=== PATIENT | female | born 1985 | race Caucasian/White ===

== ENCOUNTER 2017-06-30 13:24 | Emergency (ER) | payer BC ==
--- NOTE | 2017-06-30 14:14 | ER Document Report ---
ED General - General Chief Complaint: Chest Pain Stated Complaint: HEART RATE PROBLEM Time Seen by Provider: 06/30/17 14:01 Mode of Arrival: Ambulatory Information source: Patient Notes: 31-year-old female presents with complaints of 2 week duration of nausea with decreased oral intake. Patient notes that there is no pain that she just feels very nauseous. She denies any fevers or chills admits to anxiety. She notes her heart rate worsens when she stands up TRAVEL OUTSIDE OF THE [place] IN LAST 30 DAYS: Yes COUNTRY TRAVELED TO/FROM: [facility] Onset: Last week Onset/Duration: Intermittent Quality of pain: No pain Severity: Mild Pain Level: Denies Associated symptoms: Other Exacerbated by: Standing Relieved by: Denies Similar symptoms previously: No Recently seen / treated by doctor: No - Related Data Allergies/Adverse Reactions: fluconazole [From Diflucan] Allergy (Unknown, Verified 06/30/17 13:25) Past Medical History - Social History Smoking Status: Never Smoker Cigarette use (# per day): No Chew tobacco use (# tins/day): No Smoking Education Provided: No Frequency of alcohol use: None Drug Abuse: None Family History: Reviewed & Not Pertinent, CAD, DM Patient has suicidal ideation: No Patient has homicidal ideation: No - Past Medical History Cardiac Medical History: Denies: Hx Heart Attack, Hx Hypertension Pulmonary Medical History: Denies: Hx Asthma Neurological Medical History: Reports: Hx Cerebrovascular Accident - At , weakness on left side, cerebral palsy. Denies: Hx Seizures Renal/ Medical History: Denies: Hx Peritoneal Dialysis GI Medical History: Denies: Hx Hepatitis, Hx Hiatal Hernia, Hx Ulcer Musculoskeltal Medical History: Reports Hx Muscle Weakness - Left sided weakness Infectious Medical History: Denies: Hx Hepatitis Past Surgical History: Reports: Hx Cholecystectomy, Hx Orthopedic Surgery - x6. Denies: Hx Mastectomy, Hx Open Heart Surgery, Hx Pacemaker - Immunizations Immunizations up to date: Yes Hx Diphtheria, Pertussis, Tetanus Vaccination: Yes Review of Systems - Review of Systems Notes: REVIEW OF SYSTEMS: CONSTITUTIONAL : Denies fever, chills, or sweats. Denies recent illness. EENT: Denies eye, ear, throat, or mouth pain or symptoms. Denies nasal or sinus congestion or discharge. Denies throat, tongue, or mouth swelling or difficulty swallowing. CARDIOVASCULAR: Admits to heart racing RESPIRATORY: Denies cough, cold, or chest congestion. Denies shortness of breath, difficulty breathing, or wheezing. GASTROINTESTINAL: Denies abdominal pain or distention. Denies nausea, vomiting , or diarrhea. Denies blood in vomitus, stools, or per rectum. Denies black, tarry stools. Denies constipation. GENITOURINARY: Denies difficulty urinating, painful urination, burning, frequency, blood in urine, or discharge. FEMALE GENITOURINARY: Denies vaginal bleeding, heavy or abnormal periods, irregular periods. Denies vaginal discharge or odor. MUSCULOSKELETAL: Denies back or neck pain or stiffness. Denies joint pain or swelling. SKIN: Denies rash, lesions or sores. HEMATOLOGIC : Denies easy bruising or bleeding. LYMPHATIC: Denies swollen, enlarged glands. NEUROLOGICAL: Denies confusion or altered mental status. Denies passing out or loss of consciousness. Denies dizziness or lightheadedness. Denies headache. Denies weakness or paralysis or loss of use of either side. Denies problems with gait or speech. Denies sensory loss, numbness, or tingling. Denies seizures. PSYCHIATRIC: Admits to anxiety ALL OTHER SYSTEMS REVIEWED AND NEGATIVE. PHYSICAL EXAMINATION: GENERAL: Well-appearing, well-nourished and in no acute distress. HEAD: Atraumatic, normocephalic. EYES: Pupils equal round and reactive to light, extraocular movements intact, conjunctiva are normal. ENT: Nares patent, oropharynx clear without exudates. Moist mucous membranes. NECK: Normal range of motion, supple without lymphadenopathy LUNGS: Breath sounds clear to auscultation bilaterally and equal. No wheezes rales or rhonchi. HEART: Regular rate and rhythm without murmurs ABDOMEN: Soft, nontender, nondistended abdomen. No guarding, no rebound. No masses appreciated. Female : deferred Musculoskeletal: Normal range of motion, no pitting or edema. No cyanosis. NEUROLOGICAL: Cranial nerves grossly intact. Normal speech, normal gait. Normal sensory, motor exams PSYCH: Normal mood, normal affect. SKIN: Warm, Dry, normal turgor, no rashes or lesions noted. Dictation was performed using [employer] voice recognition software Physical Exam - Vital signs Vitals: Temp Pulse Resp BP Pulse Ox 98.6 F 92 18 142/75 H 94 06/30/17 13:29 06/30/17 13:29 06/30/17 13:29 06/30/17 13:29 06/30/17 13:29 Course - Re-evaluation Re-evalutation: 06/30/17 14:14 Patient symptoms appear to be secondary to dehydration anxiety given decreased oral intake patient is quite anxious stating that she believes she is and has taken 2 test today 06/30/17 19:16 Patient's lab work noted no significant abnormality, I believe this is all anxiety dehydration related, patient overall looks well is in no distress and will be discharged home After performing a Medical Screening Examination, I estimate there is LOW risk for RUPTURED ESOPHAGUS, PNEUMOTHORAX, PULMONARY EMBOLISM, ACUTE CORONARY SYNDROME, OR THORACIC AORTIC DISSECTION, thus I consider the discharge disposition reasonable. I have reevaluated this patient multiple times and no significant life threatening changes are noted. The patient and I have discussed the diagnosis and risks, and we agree with discharging home with close follow-up. We also discussed returning to the Emergency Department immediately if new or worsening symptoms occur. We have discussed the symptoms which are most concerning (e.g., bloody sputum, worsening pain or shortness of breath) that necessitate immediate return. - Vital Signs Vital signs: Temp Pulse Resp BP Pulse Ox 97.9 F 77 18 133/88 H 99 06/30/17 16:53 06/30/17 16:53 06/30/17 16:53 06/30/17 16:53 06/30/17 16:53 - Laboratory Result Diagrams: 06/30/17 14:12 06/30/17 14:12 Laboratory results interpreted by me: 06/30/17 14:12 Glucose 116 H Discharge - Discharge Clinical Impression: Dehydration, Tachycardia Condition: Stable Disposition: HOME, SELF-CARE Instructions: Sinus Tachycardia ([facility]) Additional Instructions: Follow up with your physician tomorrow for further care or return to the ED IMMEDIATELY if symptoms worsen or new concerns occur. If you cannot afford to follow up with your primary care physician a list of low cost clinics have been provided at the end of your discharge papers as well. Referrals: LORIN MOTT MD [ACTIVE STAFF] - Follow up as needed
[2017-06-30 14:33] LABS: ABSOLUTE EOSINOPHILS # (AUTO) 0.2 10^3/uL (0.0-0.6); ABSOLUTE LYMPHOCYTES (AUTO) 1.5 10^3/uL (0.5-4.7); ABSOLUTE MONOCYTES (AUTO) 0.5 10^3/uL (0.1-1.4); ABSOLUTE NEUT (AUTO) 5.2 10^3/uL (1.7-8.2); BASOPHILS % (AUTO) 0.5 % (0-2); EOSINOPHILS % (AUTO) 2.1 % (0-6); HEMATOCRIT 39.2 % (36.0-47.0); HEMOGLOBIN 13.4 g/dL (12.0-15.5); LYMPHOCYTES % (AUTO) 20.3 % (13-45); MEAN CORPUSCULAR HEMOGLOBIN 29.6 pg (27.0-33.4); MEAN CORPUSCULAR HGB CONC 34.1 g/dL (32.0-36.0); MEAN CORPUSCULAR VOLUME 87 fl (80-97); MONOCYTES % (AUTO) 6.9 % (3-13); PLATELET COUNT 273 10^3/uL (150-450); RED BLOOD COUNT 4.52 10^6/uL (3.72-5.28); RED CELL DISTRIBUTION WIDTH 12.7 % (11.5-14.0); SEGMENTED NEUTROPHILS % (AUTO) 70.2 % (42-78); TOTAL CELLS COUNTED % (AUTO) 100 %; WHITE BLOOD COUNT 7.4 10^3/uL (4.0-10.5)
[2017-06-30 14:58] LABS: ALANINE AMINOTRANSFERASE 26 U/L (9-52); ALBUMIN 4.8 g/dL (3.5-5.0); ALKALINE PHOSPHATASE 54 U/L (38-126); ANION GAP 12 (5-19); ASPARTATE AMINO TRANSFERASE 22 U/L (14-36); BILIRUBIN,DIRECT 0.3 mg/dL (0.0-0.4); BILIRUBIN,TOTAL 0.3 mg/dL (0.2-1.3); BLOOD UREA NITROGEN 7 mg/dL (7-20); CALCIUM 9.6 mg/dL (8.4-10.2); CARBON DIOXIDE 29 mmol/L (22-30); CHLORIDE 101 mmol/L (98-107); GLUCOSE 116 mg/dL (75-110); POTASSIUM 3.7 mmol/L (3.6-5.0); SODIUM 141.5 mmol/L (137-145); TOTAL PROTEIN 7.8 g/dL (6.3-8.2)
[2017-06-30 16:54] VITALS: BP 133/88
--- NOTE | 2017-07-01 11:59 | EKG REPORT ---
SEVERITY:- NORMAL ECG - SINUS RHYTHM : Confirmed by: Nirali Clinton MD 01-Jul-2017 11:58:19
== END 2017-06-30 16:56 | disposition home or self-care (01) ==
LOC: ER 13:24
DX: E86.0 Dehydration (principal); F41.9 Anxiety disorder, unspecified; R00.0 Tachycardia, unspecified; R11.0 Nausea; Z88.3 Allergy status to other anti-infective agents
CPT/HCPCS: 36415; 80053; 84443; 84703; 85025; 85379; 93005; 93010; 99285

== ENCOUNTER 2017-09-28 05:14 | Day surgery (SDC) | payer BC ==
[2017-09-26 12:12] LABS: HEMATOCRIT 41.1 % (36.0-47.0); HEMOGLOBIN 13.8 g/dL (12.0-15.5); MEAN CORPUSCULAR HEMOGLOBIN 29.3 pg (27.0-33.4); MEAN CORPUSCULAR HGB CONC 33.5 g/dL (32.0-36.0); MEAN CORPUSCULAR VOLUME 87 fl (80-97); PLATELET COUNT 265 10^3/uL (150-450); RED CELL DISTRIBUTION WIDTH 13.3 % (11.5-14.0); WHITE BLOOD COUNT 8.9 10^3/uL (4.0-10.5)
[2017-09-26 12:21] LABS: APPEARANCE,URINE SLIGHTLY-CLOUDY; BILIRUBIN,URINE NEGATIVE (NEGATIVE); COLOR,URINE YELLOW; GLUCOSE, URINE NEGATIVE (NEGATIVE); KETONES,URINE NEGATIVE (NEGATIVE); LEUKOCYTE ESTERASE,URINE MODERATE (NEGATIVE); NITRITE,URINE NEGATIVE (NEGATIVE); PROTEIN,URINE NEGATIVE (NEGATIVE); URINE SPECIFIC GRAVITY 1.009; UROBILINOGEN,URINE NEGATIVE mg/dL (<2.0)
[2017-09-26 12:35] LABS: ANION GAP 15 (5-19); BLOOD UREA NITROGEN 9 mg/dL (7-20); CALCIUM 9.5 mg/dL (8.4-10.2); CARBON DIOXIDE 29 mmol/L (22-30); CHLORIDE 100 mmol/L (98-107); GLUCOSE 63 mg/dL (75-110); SODIUM 144.3 mmol/L (137-145)
[2017-09-26 12:38] LABS: POTASSIUM 3.9 mmol/L (3.6-5.0)
[~2017-09-28 05:14] MED LIST: CEFAZOLIN 1 GM/D5W RTU 1 GM/50 ML RTUPB IV PRN; LACTATED RINGERS 1000 ML IV PRN; LIDOCAINE 0.5% INJ-PF (5 MG/ML) 50 ML SDV SUBCUT PRN
[2017-09-28 07:06] LABS: PHOSPHORUS 4.1 mg/dL (2.5-4.5)
[2017-09-28] MEDS ORDERED: FENTANYL CITRATE INJ/PF 100 MCG/2 ML AMPUL ONE (07:16)
[2017-09-28] MEDS ORDERED: DEXAMETHASONE SOD PHOSPHATE INJ 4 MG/1 ML VIAL ONE (07:16)
[2017-09-28] MEDS ORDERED: PROPOFOL INJ 200 MG/20 ML VIAL IV ONE (07:16)
[2017-09-28] MEDS ORDERED: ONDANSETRON HCL INJ/PF 4 MG/2 ML SDV ONE (07:16)
[2017-09-28] MEDS ORDERED: MIDAZOLAM 2 MG/2 ML INJ ONE (07:16)
--- NOTE | 2017-09-28 07:50 | EKG REPORT ---
SEVERITY:- ABNORMAL ECG - SINUS RHYTHM VENTRICULAR BIGEMINY : Confirmed by: Chay Argueta MD 28-Sep-2017 07:50:04
[2017-09-28] MEDS ORDERED: DIPHENHYDRAMINE HCL 50 MG/ML VIAL IV PRN (08:22)
[2017-09-28] MEDS ORDERED: MEPERIDINE HCL/PF INJ 25 MG/1 ML DISP.SYRIN IV PRN (08:22)
[2017-09-28] MEDS ORDERED: FENTANYL CITRATE INJ/PF 100 MCG/2 ML AMPUL IV PRN ×3 (08:22)
[2017-09-28] MEDS ORDERED: PROMETHAZINE HCL INJ 25 MG/1 ML VIAL IV PRN (08:22)
[2017-09-28] MEDS ORDERED: KETOROLAC TROMETHAMINE INJ/PF 30 MG/1 ML SDV ONE (08:24)
[2017-09-28] MEDS ORDERED: ACETAMINOPHEN 100 ML IV ONE (08:24)
[2017-09-28] MEDS ORDERED: MORPHINE INJ 4 MG DOSE (EDIT ROUTE) INJ PRN (08:30)
[2017-09-28] MEDS ORDERED: OXYCODONE-ACETAMINOPHEN 5-325 MG TABLET PO PRN (08:30)
[2017-09-28] MEDS ORDERED: PROMETHAZINE HCL INJ 25 MG/1 ML VIAL IM PRN (08:30)
[2017-09-28] MEDS ORDERED: HYDROMORPHONE HCL INJ/PF 2 MG/ML AMPULE ONE (08:48)
[2017-09-28 10:35] VITALS: BP 119/59
--- NOTE | 2017-09-28 12:55 | OPERATIVE REPORT E ---
Operative Report NAME: TOR MATIAS : 1985 AGE: 32Y DATE OF SURGERY: 09/28/2017 ROOM: PREOPERATIVE DIAGNOSIS: Desires permanent sterilization, desires IUD removal. POSTOPERATIVE DIAGNOSIS: Desires permanent sterilization, desires IUD removal. PROCEDURE: IUD removal and the laparoscopic Filshie clip sterilization. SURGEON: DAJA DAVID M.D. COMPLICATIONS: None. ANESTHESIA: General endotracheal. FINDINGS: A normal pelvis, normal tubes and ovaries, normal uterus, normal upper abdomen, appendix was not visualized. Mirena IUD was removed. INDICATIONS FOR PROCEDURE: The patient desired permanent sterilization understanding the risks and failure over 10 years. and possibility of bleeding after removal of her IUD. The usual risks of bleeding, infection, anesthesia, and damage to organs or tissues within the operation were discussed with the patient and understood. PROCEDURE: The patient was taken to the operating room and placed in the modified lithotomy position. After adequate anesthesia was ascertained, Filshie clip sterilization. The bladder was drained under sterile technique. EUA was performed. timeout was performed. Antibiotics have been given. IUD was removed without difficulty and discarded. Attention was then turned to the abdomen which after re-gloving this physician made a small infraumbilical incision cannula was placed and gas instilled. Under direct visualization, an 8 mm port was placed in the midline approximately 3 fingerbreadths above the symphysis pubis and under direct visualization inserted in the pelvis. Filshie applicator was placed within and approximately 1 cm to 1.5 cm from the uterine fundus on the antimesenteric border clip, and clip extending over the entire width of each tube a single Filshie clip was placed on each tube with care to avoid the round ligament bilaterally. Survey was then completed. Bleeding was nil. Instruments removed. The gas was removed. Fascial incision of the umbilicus was closed with 2 stitches of 0 Vicryl stitch and subcuticular stitches of 2-0 gut was placed upper and lower. Instruments removed from the vagina, and the patient was taken to recovery room in stable condition. DICTATING PHYSICIAN: DAJA DAVID M.D. [id number] [id number] PHY#: [id number] ID: [id number] JOB#: [id number] ACCT: [id number] cc:DAJA DAVID M.D. >
[2017-09-28] MEDS ORDERED: IBUPROFEN 800 MG TABLET PO SCH (14:00)
== END 2017-09-28 10:30 | disposition home or self-care (01) ==
LOC: OROUT 05:14
PROVIDERS: ATTEND Specialist
DX: Z30.2 Encounter for sterilization (principal); Z30.432 Encounter for removal of intrauterine contraceptive device; F41.9 Anxiety disorder, unspecified; F32.9 Major depressive disorder, single episode, unspecified; G80.9 Cerebral palsy, unspecified; Z86.73 Personal history of transient ischemic attack (TIA), and cerebral infarction without residual deficits; Z88.8 Allergy status to other drugs, medicaments and biological substances; Z79.899 Other long term (current) drug therapy
CPT/HCPCS: 86900; 86901; 36415 ×2; 86850; 83735; 84100; 85027; 81025; 80048; 81001; 93005; 93010; 58671; 58301; J2250; J0690; J1100; J3010; J1885; J1170; J2405; J2704; J0131; 851

== ENCOUNTER 2018-04-28 17:59 | Emergency (ER) | payer BC ==
[2018-04-28] MEDS ORDERED: IBUPROFEN 800 MG TABLET PO ONE (18:58)
--- NOTE | 2018-04-28 18:59 | ER Document Report ---
ED Extremity Problem, Upper - General Chief Complaint: Arm Injury Stated Complaint: ARM INJURY Time Seen by Provider: 04/28/18 18:19 Mode of Arrival: Ambulatory Information source: Patient Notes: 32-year-old female presents to ED for complaint of left elbow pain. She states she fell this morning landing on her left elbow. She states that the time she did not have any pain but as the day progressed pain became worse. She states she has swelling and is unable to bend the elbow due to the pain. Patient is alert and oriented respirations regular and unlabored speaking in full sentences walk with steady gait. TRAVEL OUTSIDE OF THE [place] IN LAST 30 DAYS: No COUNTRY TRAVELED TO/FROM: [facility] Patient complains to provider of: Left, Elbow Onset: This morning Recent injury: Yes Where: Home, Indoors Quality of pain: Sharp, Throbbing Severity of pain: Moderate Pain Level: 4 Context: Fall Associated symptoms: None Exacerbated by: Movement, Exertion Relieved by: Rest, Positioning Similar symptoms previously: No Recently seen / treated by doctor: No - Related Data Allergies/Adverse Reactions: fluconazole [From Diflucan] Allergy (Unknown, Verified 06/30/17 13:25) Past Medical History - General Information source: Patient - Social History Smoking Status: Never Smoker Frequency of alcohol use: None Drug Abuse: None Lives with: Alone - Son Family History: Reviewed & Not Pertinent, CAD, DM Patient has suicidal ideation: No Patient has homicidal ideation: No - Past Medical History Cardiac Medical History: Reports: None Pulmonary Medical History: Reports: None EENT Medical History: Reports: None Neurological Medical History: Reports: Hx Cerebrovascular Accident - At , weakness on left side, cerebral palsy Endocrine Medical History: Reports: None Renal/ Medical History: Reports: None Malignancy Medical History: Reports: None GI Medical History: Reports: None Musculoskeletal Medical History: Reports Hx Muscle Weakness - Left sided weakness, Reports Other - Cerebral palsy left side due to stroke at Skin Medical History: Reports None Psychiatric Medical History: Reports: None Traumatic Medical History: Reports: None Infectious Medical History: Reports: None Past Surgical History: Reports: Hx Cholecystectomy, Hx Orthopedic Surgery - x6, Hx Tonsillectomy, Hx Tubal Ligation - Immunizations Immunizations up to date: Yes Hx Diphtheria, Pertussis, Tetanus Vaccination: No Review of Systems - Review of Systems Notes: REVIEW OF SYSTEMS: CONSTITUTIONAL : Denies fever, chills, or sweats. Denies recent illness. EENT: Denies eye, ear, throat, or mouth pain or symptoms. Denies nasal or sinus congestion or discharge. Denies throat, tongue, or mouth swelling or difficulty swallowing. CARDIOVASCULAR: Denies chest pain. Denies palpitations or racing or irregular heart beat. Denies ankle edema. RESPIRATORY: Denies cough, cold, or chest congestion. Denies shortness of breath, difficulty breathing, or wheezing. GASTROINTESTINAL: Denies abdominal pain or distention. Denies nausea, vomiting , or diarrhea. Denies blood in vomitus, stools, or per rectum. Denies black, tarry stools. Denies constipation. GENITOURINARY: Denies difficulty urinating, painful urination, burning, frequency, blood in urine, or discharge. FEMALE GENITOURINARY: Denies vaginal bleeding, heavy or abnormal periods, irregular periods. Denies vaginal discharge or odor. MUSCULOSKELETAL: Denies back or neck pain or stiffness. Pain to left elbow with any movement mild swelling to left elbow states the pain has been Progressively worse all day since falling and landing on her elbows this morning SKIN: Denies rash, lesions or sores. HEMATOLOGIC : Denies easy bruising or bleeding. LYMPHATIC: Denies swollen, enlarged glands. NEUROLOGICAL: Denies confusion or altered mental status. Denies passing out or loss of consciousness. Denies dizziness or lightheadedness. Denies headache. Denies weakness or paralysis or loss of use of either side. Denies problems with gait or speech. Denies sensory loss, numbness, or tingling. Denies seizures. PHYSICAL EXAMINATION: GENERAL: Well-appearing, well-nourished and in no acute distress. HEAD: Atraumatic, normocephalic. EYES: Pupils equal round and reactive to light, extraocular movements intact, conjunctiva are normal. ENT: Nares patent, oropharynx clear without exudates. Moist mucous membranes. NECK: Normal range of motion, supple without lymphadenopathy LUNGS: Breath sounds clear to auscultation bilaterally and equal. No wheezes rales or rhonchi. HEART: Regular rate and rhythm without murmurs ABDOMEN: Soft, nontender, nondistended abdomen. No guarding, no rebound. No masses appreciated. Female : deferred Musculoskeletal: Decreased range of motion to left elbow, tenderness to medial and lateral elbow no bruising no swelling, no pitting or edema. No cyanosis. Patient's normal range of motion to her shoulder and wrist patient does have cerebral palsy due to a stroke at with left-sided weakness NEUROLOGICAL: Cranial nerves grossly intact. Normal speech, normal gait. Normal sensory, motor exams PSYCH: Normal mood, normal affect. SKIN: Warm, Dry, normal turgor, no rashes or lesions noted. PSYCHIATRIC: Denies anxiety or stress. Denies depression, suicidal ideation, or homicidal ideation. ALL OTHER SYSTEMS REVIEWED AND NEGATIVE. Dictation was performed using [employer] voice recognition software Physical Exam - Vital signs Vitals: Temp Pulse Resp BP Pulse Ox 97.8 F 83 20 128/69 H 100 04/28/18 18:06 04/28/18 18:06 04/28/18 18:06 04/28/18 18:06 04/28/18 18:06 Course - Re-evaluation Re-evalutation: 04/28/18 20:[address] Tello due to the effusion to the elbow after falling landing on her elbow with decreased range of motion. He recommended a posterior long-arm sling medication and have her call the office for follow-up in the morning. Patient was ordered a posterior long-arm sling and instructed to follow-up with Dr. tello. She lives at home with her young sons and did not want any narcotics she wanted to use day with ibuprofen [id number] at this time. She given instructions on elevation and ice. - Vital Signs Vital signs: Temp Pulse Resp BP Pulse Ox 97.8 F 83 20 128/69 H 100 04/28/18 18:06 04/28/18 18:06 04/28/18 18:06 04/28/18 18:06 04/28/18 18:06 - Diagnostic Test Radiology reviewed: Image reviewed, Reports reviewed Discharge - Discharge Clinical Impression: Effusion of elbow joint, left Condition: Stable Disposition: HOME, SELF-CARE Additional Instructions: Elbow Effusion Your elbow shows no sign of fracture. However, there is fluid (probably blood) within the elbow joint. This may be due to a subtle cartilage injury or sprain, but it may also be a sign of a hidden fracture at the elbow. The usual treatment is to immobilize the elbow, and treat it exactly as if it were broken. Then in a few days, the joint will be rechecked by the physician for evidence of a hidden fracture. This follow-up is important -- the elbow must be checked as often as necessary until the physician is sure there is no broken bone. You should call the doctor or return at once if the elbow or forearm becomes severely painful or swollen, or if you become numb in the arm or hand. Splint Pending Casting Your injury can't be casted until the swelling has subsided. Therefore, a temporary splint has been placed to protect the injury. Full use of an injured area is not possible in a splint. You should follow the doctor's instructions concerning rest, ice, and elevation of the injury. Never do anything which causes pain under the splint. Keep the splint on ALL THE TIME until you return for casting. If there is unexpected severe pain, or numbness, discoloration, or swelling beyond the splint, you should return at once. Ibuprofen Ibuprofen is an excellent, safe drug for pain control. In addition, it has potent antiinflammatory effects which are beneficial, especially in the treatment of injuries, arthritis, or tendonitis. It's best to take ibuprofen with food. Persons with ulcer disease or allergy to aspirin should notify their physician of this before taking ibuprofen. Take the medication exactly as prescribed. Don't take additional doses unless instructed to do so by your doctor. If you develop wheezing, shortness of breath, hives, faintness, stomach pain, vomiting, or dark black stools, return for re-evaluation at once. Ice & Elevation Apply ice packs frequently against the painful area. Many different schedules are recommended, such as "20 minutes on, 20 minutes off" or "one hour ice, two hours rest." If you need to work, you may need to go longer between ice treatments. You should plan to have the area ice packed AT LEAST one- fourth of the time. The ice should be applied over the wrap, tape, or splint, or over a layer of cloth -- not directly against the skin. Some ice bags have a built-in cloth and can be put directly on the skin. Your injured part should be elevated as much as possible over the next 48 hours. Try to keep the injury above the level of the heart. Avoid use of the injured area. Elevation and rest will decrease the swelling. FOLLOW-UP CARE: If you have been referred to a physician for follow-up care, call the physician s office for an appointment as you were instructed or within the next two days. If you experience worsening or a significant change in your symptoms, notify the physician immediately or return to the Emergency Department at any time for re-evaluation. Forms: Elevated Blood Pressure, Special Work Note, Return to Work Referrals: ALPHONSO BECKWITH FNP [Primary Care Provider] - Follow up as needed ALY TELLO DO [ACTIVE STAFF] - Follow up tomorrow
--- NOTE | 2018-04-28 19:23 | RADIOLOGY REPORT (SQ) ---
EXAM DESCRIPTION: ELBOW LEFT OVER 2 VIEWS COMPLETED DATE/TIME: 04/28/2018 7:12 pm REASON FOR STUDY: fell landed on elbow COMPARISON: None. NUMBER OF VIEWS: Four views. TECHNIQUE: AP, lateral, and both oblique radiographic images acquired of the left elbow. LIMITATIONS: None. FINDINGS: MINERALIZATION: Normal. BONES: No acute fracture or dislocation. No worrisome bone lesions. JOINT: Displaced fat pads consistent with effusion. SOFT TISSUES: No soft tissue swelling. No foreign body. OTHER: No other significant finding. IMPRESSION: JOINT EFFUSION. NO OBVIOUS FRACTURE BUT CANNOT EXCLUDE OCCULT FRACTURE. TECHNICAL DOCUMENTATION: JOB ID: [id number] [employer]- All Rights Reserved Reading location - IP/workstation name: [email or web address]
[2018-04-28 20:19] VITALS: BP 137/60
== END 2018-04-28 20:10 | disposition home or self-care (01) ==
LOC: ER 17:59
PROC: 2W39X1Z Immobilization of Left Upper Extremity using Splint (ICD-10-PCS; principal; 2018-04-28)
DX: M25.422 Effusion, left elbow (principal); S59.902A Unspecified injury of left elbow, initial encounter; M25.522 Pain in left elbow; W19.XXXA Unspecified fall, initial encounter
CPT/HCPCS: 99283

== ENCOUNTER 2018-05-22 17:26 | Emergency (ER) | payer BC ==
[2018-05-22] MEDS ORDERED: TETRACAINE HCL 0.5% OPH SOLN 4 ML OS ONE (19:05)
[2018-05-22] MEDS ORDERED: ERYTHROMYCIN 0.5% OPH OINTMENT 3.5 GM (ER DISP) OS PRN (19:28)
--- NOTE | 2018-05-22 19:28 | ER Document Report ---
ED Eye Complaint - General Chief Complaint: Eye Problem Stated Complaint: EYE IRRITATION Time Seen by Provider: 05/22/18 19:04 Mode of Arrival: Ambulatory Information source: Patient Notes: 32-year-old female presented to ED for red itchy burning draining eyes since Sunday. She states that her son has been treated for pinkeye and is been on antibiotics and eyedrops. Patient is alert and oriented respirations regular and unlabored speaking in full sentences. TRAVEL OUTSIDE OF THE [place] IN LAST 30 DAYS: No COUNTRY TRAVELED TO/FROM: [facility] - HPI Onset: Other - Sunday Eye location: Left Injury: No Occurred at: Home Quality of pain: Burning Severity: Severe Pain Level: 5 Safety glasses worn: No Contact lenses worn: No Associated symptoms: Burning, Itching - Related Data Allergies/Adverse Reactions: fluconazole [From Diflucan] Allergy (Unknown, Verified 05/22/18 17:27) Past Medical History - General Information source: Patient - Social History Smoking Status: Never Smoker Cigarette use (# per day): No Chew tobacco use (# tins/day): No Smoking Education Provided: No Frequency of alcohol use: None Drug Abuse: None Lives with: Alone - Son Family History: Reviewed & Not Pertinent, CAD, DM Patient has suicidal ideation: No Patient has homicidal ideation: No - Past Medical History Cardiac Medical History: Reports: None Pulmonary Medical History: Reports: None EENT Medical History: Reports: None Neurological Medical History: Reports: Hx Cerebrovascular Accident - At , weakness on left side, cerebral palsy Endocrine Medical History: Reports: None Renal/ Medical History: Reports: None Malignancy Medical History: Reports: None GI Medical History: Reports: None Musculoskeletal Medical History: Reports Hx Muscle Weakness - Left sided weakness, Reports Hx Musculoskeletal Deformity Skin Medical History: Reports None Psychiatric Medical History: Reports: None Traumatic Medical History: Reports: None Infectious Medical History: Reports: None Past Surgical History: Reports: Hx Cholecystectomy, Hx Orthopedic Surgery - x6, Hx Tonsillectomy, Hx Tubal Ligation - Immunizations Immunizations up to date: Yes Hx Diphtheria, Pertussis, Tetanus Vaccination: No Review of Systems - Review of Systems Constitutional: No symptoms reported EENT: Eye pain, Eye discharge Cardiovascular: No symptoms reported Respiratory: No symptoms reported Gastrointestinal: No symptoms reported Genitourinary: No symptoms reported Female Genitourinary: No symptoms reported Musculoskeletal: No symptoms reported Skin: No symptoms reported Hematologic/Lymphatic: No symptoms reported Neurological/Psychological: No symptoms reported -: Yes All other systems reviewed and negative Physical Exam - Vital signs Vitals: Temp Pulse Resp BP Pulse Ox 98.4 F 74 16 139/74 H 97 05/22/18 17:53 05/22/18 17:53 05/22/18 17:53 05/22/18 17:53 05/22/18 17:53 Interpretation: Normal - General General appearance: Appears well, Alert General appearance pediatric: Attentiveness normal, Good eye contact - HEENT Head: Normocephalic, Atraumatic Eyes: Tears Conjunctiva: Injected Cornea: Flourescein stain uptake - Conjunctivitis only. No: Corneal abrasion, Corneal ulcer Extraocular movements intact: Yes Eyelashes: Matted Pupils: PERRL Visual acuity- Right eye: 20/50 Visual acuity- Left eye: 20/50 Visual acuity- Both eyes: 20/50 Fundascopic: Normal Ears: Normal External canal: Normal Tympanic membrane: Normal Sinus: Normal Nasal: Normal Mouth/Lips: Normal Mucous membranes: Normal Pharynx: Normal Neck: Normal - Respiratory Respiratory status: No respiratory distress Chest status: Nontender Breath sounds: Normal Chest palpation: Normal - Cardiovascular Rhythm: Regular Heart sounds: Normal auscultation Murmur: No - Abdominal Inspection: Normal Distension: No distension Bowel sounds: Normal Tenderness: Nontender Organomegaly: No organomegaly - Back Back: Normal, Nontender - Extremities General upper extremity: Normal inspection, Nontender, Normal color, Normal ROM, Normal temperature General lower extremity: Normal inspection, Nontender, Normal color, Normal ROM, Normal temperature, Normal weight bearing. No: Ijeoma's sign - Neurological Neuro grossly intact: Yes Cognition: Normal Orientation: AAOx4 Landenberg Coma Scale Eye Opening: Spontaneous Landenberg Coma Scale Verbal: Oriented Landenberg Coma Scale Motor: Obeys Commands Ped Landenberg Coma Scale Eye Opening: Spontaneous Ped Landenberg Coma Scale Verbal: Age appropriate verbal Ped Landenberg Coma Scale Motor: Spontaneous Movements Speech: Normal Motor strength normal: LUE, RUE, LLE, RLE Sensory: Normal - Psychological Associated symptoms: Normal affect, Normal mood - Skin Skin Temperature: Warm Skin Moisture: Dry Skin Color: Normal Course - Re-evaluation Re-evalutation: 05/22/18 19:[address] David with exam. She recommended using erythromycin ointment to the eye and have patient follow-up with ophthalmology tomorrow. The on-call o phthalmologist name and number was given to the patient for follow-up if she cannot get into her own behavioral health assistant. - Vital Signs Vital signs: Temp Pulse Resp BP Pulse Ox 98.4 F 74 16 139/74 H 97 05/22/18 17:53 05/22/18 17:53 05/22/18 17:53 05/22/18 17:53 05/22/18 17:53 Discharge - Discharge Clinical Impression: Conjunctivitis Qualifiers: Conjunctivitis type: unspecified Laterality: left Qualified Code(s): H10.9 - Unspecified conjunctivitis Condition: Stable Disposition: HOME, SELF-CARE Additional Instructions: CONJUNCTIVITIS: You have an infection in your eye, commonly known as "pink eye." Conjunctivitis causes redness, mild discomfort, itching, and mattering on the eyelids. It is very contagious, so you must be careful to wash your hands after touching your face so you don't pass the infection on to others. Conjunctivitis is caused by both viruses and bacteria. It usually responds quickly to treatment with antibiotic drops. These should be placed in the eye as prescribed (usually every three to four hours while you're awake). If you wear contact lenses, don't put them in your eyes until the infection is cleared and you are no longer using the drops (unless your doctor advises you otherwise). Should you develop increasing eye pain, severe swelling, decreased vision, or fail to improve as expected, please return for re-examination. Erythromycin You have been prescribed an antibiotic of the erythromycin class. These antibiotics are used for many infections, especially in penicillin-allergic patients. They're particularly useful for infections of the respiratory system. The medication will be most effective if taken before or at least two hours after meals. However, many persons will have nausea or stomach cramping with erythromycin. If this occurs, try taking the medicine with food. If the side effects are still intolerable, contact your doctor. You should not take erythromycin with non-sedating antihistamines such as Seldane or Hismanal. Call the doctor at once if you develop rash, itching, shortness of breath, or lightheadedness. ANTIBIOTIC THERAPY: You have been given an antibiotic prescription. It's important that you take all the medication, unless instructed otherwise by your physician. Failure to complete the entire course can result in relapse of your condition. Common side effects of antibiotics include nausea, intestinal cramping, or diarrhea. Women may develop vaginal yeast infections, and babies can get yeast (thrush) in the mouth following the use of antibiotics. Contact your physician if you develop significant side effects from this medication. Allergy to this antibiotic can result in hives, wheezing, faintness, or itching. If symptoms of allergy occur, stop the medication and call the doctor. FOLLOW-UP CARE: If you have been referred to a physician for follow-up care, call the physicians office for an appointment as you were instructed or within the next two days. If you experience worsening or a significant change in your symptoms, notify the physician immediately or return to the Emergency Department at any time for re-evaluation. Prescriptions: Erythromycin Base [Erythromycin Oph 1 gm Oint Ud] 1 applic LFT_EYE Q4 #1 tube Referrals: ALPHONSO BECKWITH FNP [Primary Care Provider] - Follow up as needed TANYA ANTHONY DO [ACTIVE STAFF] - Follow up tomorrow
[2018-05-22 19:49] VITALS: BP 131/81
== END 2018-05-22 19:49 | disposition home or self-care (01) ==
LOC: ER 17:26
DX: H10.9 Unspecified conjunctivitis (principal); Z88.3 Allergy status to other anti-infective agents
CPT/HCPCS: 99283

== ENCOUNTER 2018-08-02 17:00 | Emergency (ER) | payer BC ==
--- NOTE | 2018-08-02 17:31 | ER Document Report ---
ED Medical Screen (RME) - General Chief Complaint: Palpitations Stated Complaint: FLUCTUATING HEART RATE Time Seen by Provider: 08/02/18 17:22 Primary Care Provider: ALPHONSO BECKWITH FNP [Primary Care Provider] - Follow up as needed Notes: She notices her heart beating fast and irregular at times. This episode is been going on for a couple of hours. She is had a history of similar episodes to this 1 since she was 18 years old, 15 years ago. She was evaluated at that time but not put on any treatment. Told that she might one day require a pacemaker. Reviewing her file shows she had an EKG done about a year ago showing bigeminal PVCs. Patient denies chest pains. Denies shortness of breath or difficulty breathing. Denies fevers. TRAVEL OUTSIDE OF THE [place] IN LAST 30 DAYS: No COUNTRY TRAVELED TO/FROM: [facility] - Related Data Allergies/Adverse Reactions: fluconazole [From Diflucan] Allergy (Unknown, Verified 05/22/18 17:27) Past Medical History - Past Medical History Cardiac Medical History: Denies: Hx Coronary Artery Disease, Hx Heart Attack, Hx Hypertension Pulmonary Medical History: Denies: Hx Asthma, Hx Bronchitis, Hx COPD, Hx Pneumonia Neurological Medical History: Reports: Hx Cerebrovascular Accident - At , weakness on left side, cerebral palsy. Denies: Hx Seizures Renal/ Medical History: Denies: Hx Peritoneal Dialysis GI Medical History: Denies: Hx Hepatitis, Hx Hiatal Hernia, Hx Ulcer Musculoskeltal Medical History: Denies Hx Arthritis, Reports Hx Muscle Weakness - Left sided weakness, Reports Hx Musculoskeletal Deformity Infectious Medical History: Denies: Hx Hepatitis Past Surgical History: Reports: Hx Cholecystectomy, Hx Orthopedic Surgery - x6, Hx Tonsillectomy, Hx Tubal Ligation. Denies: Hx Mastectomy, Hx Open Heart Surgery, Hx Pacemaker - Immunizations Immunizations up to date: Yes Hx Diphtheria, Pertussis, Tetanus Vaccination: No History of Influenza Vaccine for 03/2017 - 08/2017 Season: Yes Influenza Administration Date for 03/2017 - 08/2017 Season: 03/04/17 Physical Exam - Vital signs Vitals: Temp Pulse Resp BP Pulse Ox 97.5 F 70 16 120/60 98 08/02/18 17:16 08/02/18 17:16 08/02/18 17:16 08/02/18 17:16 08/02/18 17:16 Course - Vital Signs Vital signs: Temp Pulse Resp BP Pulse Ox 97.5 F 70 16 120/60 98 08/02/18 17:16 08/02/18 17:16 08/02/18 17:16 08/02/18 17:16 08/02/18 17:16 Doctor's Discharge - Discharge Referrals: ALPHONSO BECKWITH FNP [Primary Care Provider] - Follow up as needed
[2018-08-02 18:02] LABS: ABSOLUTE BASOPHILS # (AUTO) 0.1 10^3/uL (0.0-0.2); ABSOLUTE EOSINOPHILS # (AUTO) 0.1 10^3/uL (0.0-0.6); ABSOLUTE LYMPHOCYTES (AUTO) 2.2 10^3/uL (0.5-4.7); ABSOLUTE MONOCYTES (AUTO) 0.6 10^3/uL (0.1-1.4); ABSOLUTE NEUT (AUTO) 4.8 10^3/uL (1.7-8.2); BASOPHILS % (AUTO) 0.8 % (0-2); EOSINOPHILS % (AUTO) 1.2 % (0-6); HEMATOCRIT 38.3 % (36.0-47.0); MEAN CORPUSCULAR HEMOGLOBIN 29.6 pg (27.0-33.4); MEAN CORPUSCULAR VOLUME 87 fl (80-97); MONOCYTES % (AUTO) 7.8 % (3-13); PLATELET COUNT 250 10^3/uL (150-450); RED BLOOD COUNT 4.39 10^6/uL (3.72-5.28); RED CELL DISTRIBUTION WIDTH 13.9 % (11.5-14.0); SEGMENTED NEUTROPHILS % (AUTO) 62.2 % (42-78); TOTAL CELLS COUNTED % (AUTO) 100 %; WHITE BLOOD COUNT 7.8 10^3/uL (4.0-10.5)
[2018-08-02 18:23] LABS: ALANINE AMINOTRANSFERASE 38 U/L (9-52); ALBUMIN 4.9 g/dL (3.5-5.0); ALKALINE PHOSPHATASE 58 U/L (38-126); ANION GAP 13 (5-19); ASPARTATE AMINO TRANSFERASE 31 U/L (14-36); BILIRUBIN,DIRECT 0.1 mg/dL (0.0-0.4); BILIRUBIN,TOTAL 0.4 mg/dL (0.2-1.3); BLOOD UREA NITROGEN 11 mg/dL (7-20); CALCIUM 9.9 mg/dL (8.4-10.2); CARBON DIOXIDE 25 mmol/L (22-30); CHLORIDE 103 mmol/L (98-107); GLUCOSE 89 mg/dL (75-110); POTASSIUM 4.1 mmol/L (3.6-5.0); SODIUM 141.2 mmol/L (137-145); TOTAL PROTEIN 8.1 g/dL (6.3-8.2)
[2018-08-02 18:39] LABS: CREATINE KINASE MB 1.24 ng/mL (<4.55)
[2018-08-02 18:42] LABS: TROPONIN I < 0.012 ng/mL
--- NOTE | 2018-08-02 20:50 | ER Document Report ---
ED Cardiac - General Chief Complaint: Palpitations Stated Complaint: FLUCTUATING HEART RATE Time Seen by Provider: 08/02/18 17:22 Primary Care Provider: OLRIN MOTT MD [ACTIVE STAFF] - 08/05/18 Notes: Patient is a 33-year-old female that comes to the emergency department for chief complaint of palpitations and intermittent sensations of lightheadedness and vague sensation of discomfort and pressure across the front of her chest. Symptoms started this morning and has been going on intermittently she denies shortness of breath. She denies fever chills, cough. She states she has been told in the past that she has some PVCs, she is not treated for this, she is also treated for depression with venlafaxine, takes no daily medications. Past medical history includes cerebral palsy, tubal ligation, cholecystectomy. She denies recreational drugs, smoking, or caffeine use. TRAVEL OUTSIDE OF THE [place] IN LAST 30 DAYS: No COUNTRY TRAVELED TO/FROM: [facility] - Related Data Allergies/Adverse Reactions: fluconazole [From Diflucan] Allergy (Unknown, Verified 05/22/18 17:27) Past Medical History - General Information source: Patient - Social History Smoking Status: Never Smoker Frequency of alcohol use: None Drug Abuse: None Lives with: Family Family History: Reviewed & Not Pertinent, CAD, DM Patient has suicidal ideation: No Patient has homicidal ideation: No - Past Medical History Cardiac Medical History: Denies: Hx Coronary Artery Disease, Hx Heart Attack, Hx Hypertension Pulmonary Medical History: Denies: Hx Asthma, Hx Bronchitis, Hx COPD, Hx Pneumonia Neurological Medical History: Reports: Hx Cerebrovascular Accident - At , weakness on left side, cerebral palsy. Denies: Hx Seizures Renal/ Medical History: Denies: Hx Peritoneal Dialysis GI Medical History: Denies: Hx Hepatitis, Hx Hiatal Hernia, Hx Ulcer Musculoskeletal Medical History: Denies Hx Arthritis, Reports Hx Muscle Weakness - Left sided weakness, Reports Hx Musculoskeletal Deformity Infectious Medical History: Denies: Hx Hepatitis Past Surgical History: Reports: Hx Cholecystectomy, Hx Orthopedic Surgery - x6, Hx Tonsillectomy, Hx Tubal Ligation. Denies: Hx Mastectomy, Hx Open Heart Surgery, Hx Pacemaker - Immunizations Immunizations up to date: Yes Hx Diphtheria, Pertussis, Tetanus Vaccination: No Review of Systems - Review of Systems Constitutional: No symptoms reported EENT: No symptoms reported Cardiovascular: See HPI Respiratory: No symptoms reported Gastrointestinal: No symptoms reported Genitourinary: No symptoms reported Female Genitourinary: No symptoms reported Musculoskeletal: No symptoms reported Skin: No symptoms reported Hematologic/Lymphatic: No symptoms reported Neurological/Psychological: No symptoms reported Physical Exam - Vital signs Vitals: Temp Pulse Resp BP Pulse Ox 97.5 F 70 16 120/60 98 08/02/18 17:16 08/02/18 17:16 08/02/18 17:16 08/02/18 17:16 08/02/18 17:16 - Notes Notes: GENERAL: Alert, interacts well. No acute distress. HEAD: Normocephalic, atraumatic. EYES: Pupils equal, round, and reactive to light. Extraocular movements intact. ENT: Oral mucosa moist, tongue midline. Oropharynx unremarkable. Airway patent. Nares patent, no nasal septal hematoma, TM's intact. NECK: Full range of motion. Supple. Trachea midline. LUNGS: Clear to auscultation bilaterally, no wheezes, rales, or rhonchi. No respiratory distress. HEART: Regular rate but extrasystoles are noted. No murmur ABDOMEN: Soft, non-tender. Non-distended. Bowel sounds present in all 4 quadrants. GENITOURINARY: Deferred EXTREMITIES: Moves all 4 extremities spontaneously. No edema, normal radial and dorsalis pedis pulses bilaterally. No cyanosis. BACK: no cervical, thoracic, lumbar midline tenderness. No saddle anesthesia, normal distal neurovascular exam. NEUROLOGICAL: Alert and oriented x3. Normal speech. [cranial nerves II through XII grossly intact]. PSYCH: Normal affect, normal mood. SKIN: Warm, dry, normal turgor. No rashes or lesions noted. Course - Re-evaluation Re-evalutation: EKG says bigeminy, no T wave inversions in consecutive leads, no ST segment changes in consecutive leads, DC interval and QTc unremarkable. Patient showing multiple PVCs on the monitor. Patient does not have any pain or dizziness on my evaluation, she has not passed out, symptoms are vague but she can feel the palpitations. Troponins negative, CBC, chemistry unremarkable, thyroid studies unremarkable, electrolytes unremarkable including magnesium. Chest x-ray unremarkable. Discussed with Dr. Jones. I did discuss with patient in detail her workup and different options. At this time no interventions will be made, patient has ongoing symptoms, patient will be referred to cardiology for close follow-up, I did discuss different treatment options once going to cardiology and she did ask for some general recommendations on her discharge instructions. Discussed return precautions. Patient states satisfaction and agreement with plan. - Vital Signs Vital signs: Temp Pulse Resp BP Pulse Ox 97.7 F 70 17 112/66 100 08/02/18 20:22 08/02/18 17:16 08/02/18 22:16 08/02/18 22:16 08/02/18 22:16 - Laboratory Result Diagrams: 08/02/18 17:40 08/02/18 17:40 Laboratory results interpreted by me: 08/02/18 17:40 Magnesium 2.4 H Discharge - Discharge Clinical Impression: Palpitations Condition: Stable Disposition: HOME, SELF-CARE Additional Instructions: Your workup shows PVCs and runs of bigeminy. Your remaining workup does not show any concerning findings at this time. Recommend cardiology follow-up, you can discuss different options for treatment (i.e. as needed atenolol, additional testing, etc). Call the referral listed below. Return for any concerning symptoms including passing out, difficulty breathing, pain in your chest, or any other concerning or worsening symptoms. Forms: Return to Work Referrals: LORIN MOTT MD [ACTIVE STAFF] - 08/05/18
[2018-08-02 21:31] LABS: FREE T4 (FREE THYROXINE) 1.06 ng/dL (0.78-2.19)
--- NOTE | 2018-08-02 21:33 | RADIOLOGY REPORT (SQ) ---
EXAM DESCRIPTION: XR CHEST 1 VIEW COMPLETED DATE/TME: 08/02/2018 20:51 CLINICAL HISTORY: 33 years, Female, chest pain COMPARISON: EXAM DESCRIPTION: CLINICAL HISTORY: chest pain COMPARISON: None. FINDINGS: Single view of the chest is submitted. Cardiac silhouette is normal. No focal parenchymal or pleural disease. No acute bony abnormality. There is no significant pulmonary vascular engorgement. IMPRESSION: No evidence of acute cardiopulmonary disease. NUMBER OF VIEWS: TECHNIQUE: LIMITATIONS: None. FINDINGS: IMPRESSION: copyright 2010 [employer]- All Rights Reserved
[2018-08-02 21:44] LABS: THYROID STIMULATING HORMONE 1.04 uIU/mL (0.47-4.68)
--- NOTE | 2018-08-02 22:06 | EKG REPORT ---
SEVERITY:- ABNORMAL ECG - SINUS RHYTHM VENTRICULAR BIGEMINY NONSPECIFIC T ABNORMALITIES, DIFFUSE LEADS : Confirmed by: Sherry Finch 02-Aug-2018 22:06:08
[2018-08-02 22:25] VITALS: BP 112/66
== END 2018-08-02 22:33 | disposition home or self-care (01) ==
LOC: ER 17:00
DX: R00.2 Palpitations (principal); R42 Dizziness and giddiness; R07.9 Chest pain, unspecified
CPT/HCPCS: 36415; 71045; 80053; 82553; 83735; 84439; 84443; 84484; 84703; 85025; 93005; 93010; 99285

== ENCOUNTER 2018-09-23 15:47 | Emergency (ER) | payer BC ==
[2018-09-23 15:53] VITALS: BP 111/59
[2018-09-23] MEDS ORDERED: IBUPROFEN 800 MG TABLET PO ONE (16:17)
[2018-09-23] MEDS ORDERED: LIDOCAINE 5% (700 MG) TRANSDERMAL ADH..PATCH TP ONE (16:17)
--- NOTE | 2018-09-23 16:19 | ER Document Report ---
HPI - HPI Patient complains to provider of: Neck, back pain Time Seen by Provider: 09/23/18 16:04 Onset: Other Onset/Duration: Persistent - 2 weeks Quality of pain: Achy Pain Level: 5 Context: Patient presents complaining of neck and right upper back pain for the past 2 weeks. Patient denies any injury. Patient states she is seen her primary doctor for this complaint recently and was given a prescription for Robaxin. Patient denies any improvement with the Robaxin. Patient does have a history of cerebral palsy. Associated Symptoms: denies: Fever, Headache Exacerbated by: Movement Relieved by: Denies Similar symptoms previously: No Recently seen / treated by doctor: Yes - ROS ROS below otherwise negative: Yes Systems Reviewed and Negative: Yes All other systems reviewed and negative - CONSTITUTIONAL Constitutional: DENIES: Fever, Chills - NEURO Neurology: DENIES: Weakness - CARDIOVASCULAR Cardiovascular: DENIES: Chest pain - RESPIRATORY Respiratory: DENIES: Trouble Breathing, Coughing - REPRODUCTIVE Reproductive: DENIES: : - MUSCULOSKELETAL Musculoskeletal: REPORTS: Extremity pain - Right shoulder, Back Pain. DENIES: Neck Pain - DERM Skin Color: Normal Skin Problems: None Past Medical History - General Information source: Patient - Social History Smoking Status: Never Smoker Frequency of alcohol use: None Drug Abuse: None Occupation: Call center Lives with: Family Family History: Reviewed & Not Pertinent, CAD, DM - Medical History Medical History: Other - Cerebral palsy - Past Medical History Cardiac Medical History: Pulmonary Medical History: Neurological Medical History: Reports: Hx Cerebrovascular Accident - At , weakness on left side, cerebral palsy. Denies: Hx Seizures Renal/ Medical History: Denies: Hx Peritoneal Dialysis Musculoskeletal Medical History: Denies Hx Arthritis, Reports Hx Muscle Weakness - Left sided weakness, Reports Hx Musculoskeletal Deformity Past Surgical History: Reports: Hx Cholecystectomy, Hx Orthopedic Surgery - x6, Hx Tonsillectomy, Hx Tubal Ligation - Immunizations Immunizations up to date: Yes Hx Diphtheria, Pertussis, Tetanus Vaccination: No Vertical Provider Document - CONSTITUTIONAL Agree With Documented VS: Yes Exam Limitations: No Limitations General Appearance: WD/WN, No Apparent Distress - INFECTION CONTROL TRAVEL OUTSIDE OF THE [place] IN LAST 30 DAYS: No COUNTRY TRAVELED TO/FROM: [facility] - HEENT HEENT: Atraumatic, Normocephalic - NECK Neck: Normal Inspection, Supple. negative: Lymphadenopathy-Left, Lymphadenopathy-Right Notes: No meningismus - RESPIRATORY Respiratory: Breath Sounds Normal, No Respiratory Distress - CARDIOVASCULAR Cardiovascular: Regular Rate, Regular Rhythm Pulses: Normal: Radial - BACK Back: Abnormal Inspection - Right trapezius muscle tenderness with spasm Notes: Patient with thoracic tenderness T4 through 7 area, no step-off or deformity, - MUSCULOSKELETAL/EXTREMETIES Musculoskeletal/Extremeties: MAEW, FROM, Non-Tender Notes: No right shoulder joint tenderness - NEURO Level of Consciousness: Awake, Alert, Appropriate Motor/Sensory: No Motor Deficit, No Sensory Deficit - DERM Integumentary: Warm, Dry Course - Re-evaluation Re-evalutation: 09/23/18 16:16 Complains of shoulder pain although points to the trapezius area. Patient with muscle spasm. Patient had been on recent prescription for Robaxin and steroids for this pain although denies any improvement. Patient denies any traumatic injury. Will treat with different muscle relaxant and anti-inflammatory at this time. - Vital Signs Vital signs: Temp Pulse Resp BP Pulse Ox 97.4 F 64 20 111/59 L 97 09/23/18 15:52 09/23/18 15:52 09/23/18 15:52 09/23/18 15:52 09/23/18 15:52 Discharge - Discharge Clinical Impression: Trapezius muscle spasm Upper back strain Qualifiers: Encounter type: initial encounter Qualified Code(s): S29.012A - Strain of muscle and tendon of back wall of thorax, initial encounter Condition: Stable Disposition: HOME, SELF-CARE Instructions: Muscle Relaxers ([facility]), Upper Back Strain ([facility]) Additional Instructions: Return immediately for any new or worsening symptoms Followup with your primary care provider, call tomorrow to make a followup appointment Forms: Return to Work Referrals: ALPHONSO BECKWITH FNP [Primary Care Provider] - Follow up as needed
== END 2018-09-23 16:37 | disposition home or self-care (01) ==
LOC: ER 15:47
DX: S29.012A Strain of muscle and tendon of back wall of thorax, initial encounter (principal); X58.XXXA Exposure to other specified factors, initial encounter; M62.830 Muscle spasm of back; M54.2 Cervicalgia; M54.89 Other dorsalgia; M25.511 Pain in right shoulder; G80.9 Cerebral palsy, unspecified
CPT/HCPCS: 99283

== ENCOUNTER 2018-11-22 15:36 | Emergency (ER) | payer BC ==
[2018-11-22] MEDS ORDERED: NORMAL SALINE 1000 ML 1,000 ML IV ONE (16:05)
[2018-11-22] MEDS ORDERED: ONDANSETRON HCL INJ/PF 4 MG/2 ML SDV IV ONE (16:05)
--- NOTE | 2018-11-22 16:07 | ER Document Report ---
ED Medical Screen (RME) - General Chief Complaint: Abdominal Pain Stated Complaint: DIARRHEA Time Seen by Provider: 11/22/18 16:05 Primary Care Provider: ALPHONSO BECKWITH FNP [Primary Care Provider] - Follow up as needed Mode of Arrival: Ambulatory Information source: Patient Notes: Patient presents with right sided abdominal pain that moves in location the past 3 days. Patient reports nausea and diarrhea. Patient states she has had diarrhea x10 episodes today. Patient denies any fever or urinary symptoms. hx: CP, cholecystectomy, tubal ligation, anxiety I have greeted and performed a rapid initial assessment of this patient. A comprehensive ED assessment and evaluation of the patient, analysis of test results and completion of the medical decision making process will be conducted by additional ED providers. TRAVEL OUTSIDE OF THE [place] IN LAST 30 DAYS: No COUNTRY TRAVELED TO/FROM: [facility] - Related Data Allergies/Adverse Reactions: fluconazole [From Diflucan] Allergy (Unknown, Verified 09/23/18 15:48) Past Medical History - Past Medical History Cardiac Medical History: Denies: Hx Coronary Artery Disease, Hx Heart Attack, Hx Hypertension Pulmonary Medical History: Denies: Hx Asthma, Hx Bronchitis, Hx COPD, Hx Pneumonia Neurological Medical History: Reports: Hx Cerebrovascular Accident - At , weakness on left side, cerebral palsy. Denies: Hx Seizures Renal/ Medical History: Denies: Hx Peritoneal Dialysis GI Medical History: Denies: Hx Hepatitis, Hx Hiatal Hernia, Hx Ulcer Musculoskeltal Medical History: Denies Hx Arthritis, Reports Hx Muscle Weakness - Left sided weakness, Reports Hx Musculoskeletal Deformity Infectious Medical History: Denies: Hx Hepatitis Past Surgical History: Reports: Hx Cholecystectomy, Hx Orthopedic Surgery - x6, Hx Tonsillectomy, Hx Tubal Ligation. Denies: Hx Mastectomy, Hx Open Heart Surgery, Hx Pacemaker - Immunizations Immunizations up to date: Yes Hx Diphtheria, Pertussis, Tetanus Vaccination: No History of Influenza Vaccine for 03/2017 - 08/2017 Season: Yes Influenza Administration Date for 03/2017 - 08/2017 Season: 03/04/17 Physical Exam - Vital signs Vitals: Temp Pulse Resp BP Pulse Ox 98.3 F 63 18 123/63 95 11/22/18 15:45 11/22/18 15:45 11/22/18 15:45 11/22/18 15:45 06/21/19 15:45 - Abdominal Tenderness: Tender - Right sided abdominal pain, right upper middle and lower quadrant Course - Vital Signs Vital signs: Temp Pulse Resp BP Pulse Ox 98.3 F 63 18 123/63 95 11/22/18 15:45 11/22/18 15:45 11/22/18 15:45 11/22/18 15:45 11/22/18 15:45 Doctor's Discharge - Discharge Referrals: ALPHONSO BECKWITH FNP [Primary Care Provider] - Follow up as needed
[2018-11-22 17:12] LABS: ABSOLUTE EOSINOPHILS # (AUTO) 0.2 10^3/uL (0.0-0.6); ABSOLUTE LYMPHOCYTES (AUTO) 1.1 10^3/uL (0.5-4.7); ABSOLUTE MONOCYTES (AUTO) 0.6 10^3/uL (0.1-1.4); ABSOLUTE NEUT (AUTO) 5.5 10^3/uL (1.7-8.2); BASOPHILS % (AUTO) 0.5 % (0-2); EOSINOPHILS % (AUTO) 2.1 % (0-6); HEMATOCRIT 39.1 % (36.0-47.0); HEMOGLOBIN 13.5 g/dL (12.0-15.5); LYMPHOCYTES % (AUTO) 15.1 % (13-45); MEAN CORPUSCULAR HEMOGLOBIN 30.2 pg (27.0-33.4); MEAN CORPUSCULAR HGB CONC 34.4 g/dL (32.0-36.0); MEAN CORPUSCULAR VOLUME 88 fl (80-97); PLATELET COUNT 248 10^3/uL (150-450); RED BLOOD COUNT 4.46 10^6/uL (3.72-5.28); RED CELL DISTRIBUTION WIDTH 12.9 % (11.5-14.0); SEGMENTED NEUTROPHILS % (AUTO) 74.3 % (42-78); TOTAL CELLS COUNTED % (AUTO) 100 %; WHITE BLOOD COUNT 7.5 10^3/uL (4.0-10.5)
[2018-11-22 17:19] LABS: APPEARANCE,URINE CLOUDY; BILIRUBIN,URINE NEGATIVE (NEGATIVE); COLOR,URINE YELLOW; GLUCOSE, URINE NEGATIVE (NEGATIVE); KETONES,URINE NEGATIVE (NEGATIVE); LEUKOCYTE ESTERASE,URINE LARGE (NEGATIVE); NITRITE,URINE NEGATIVE (NEGATIVE); PROTEIN,URINE 30 mg/dL (NEGATIVE); URINE SPECIFIC GRAVITY 1.023
[2018-11-22 17:39] LABS: ALANINE AMINOTRANSFERASE 83 U/L (9-52); ALBUMIN 4.6 g/dL (3.5-5.0); ALKALINE PHOSPHATASE 76 U/L (38-126); ANION GAP 9 (5-19); ASPARTATE AMINO TRANSFERASE 80 U/L (14-36); BILIRUBIN,DIRECT 0.2 mg/dL (0.0-0.4); BILIRUBIN,TOTAL 0.4 mg/dL (0.2-1.3); BLOOD UREA NITROGEN 8 mg/dL (7-20); CALCIUM 9.3 mg/dL (8.4-10.2); CARBON DIOXIDE 32 mmol/L (22-30); CHLORIDE 100 mmol/L (98-107); GLUCOSE 85 mg/dL (75-110); LIPASE 72.2 U/L (23-300); POTASSIUM 3.9 mmol/L (3.6-5.0); SODIUM 141.4 mmol/L (137-145); TOTAL PROTEIN 7.4 g/dL (6.3-8.2)
[2018-11-22] MEDS ORDERED: DICYCLOMINE HCL INJ 20 MG/2 ML AMPULE IM ONE (21:32)
[2018-11-22] MEDS ORDERED: LOPERAMIDE HCL 2 MG CAPSULE PO ONE (21:32)
--- NOTE | 2018-11-22 21:38 | ER Document Report ---
ED General - General Chief Complaint: Abdominal Pain Stated Complaint: DIARRHEA Time Seen by Provider: 11/22/18 16:05 Primary Care Provider: ALPHONSO BECKWITH FNP [Primary Care Provider] - Follow up tomorrow Mode of Arrival: Ambulatory Notes: patient is a 33-year-old female with a past medical history of CP, past surgical history of cholecystectomy who presents with generalized abdominal pain, nausea and diarrhea for the past several days. States that her symptoms are acute and abrupt in onset. Have been worsening since that time. Pain in her abdomen is described as a generalized, throbbing, aching, constant discomfort. Regards her symptoms as being severe. Nothing seems to improve or worsen her symptoms. Denies a history of similar symptoms in the past. Has not seen her general physician regarding today's concerns. Has not had a recorded fever at home. Has been nauseous but has not vomited. No melena, hematochezia or hematemesis. TRAVEL OUTSIDE OF THE [place] IN LAST 30 DAYS: No COUNTRY TRAVELED TO/FROM: [facility] - Related Data Allergies/Adverse Reactions: fluconazole [From Diflucan] Allergy (Unknown, Verified 09/23/18 15:48) Past Medical History - General Information source: Patient - Social History Smoking Status: Never Smoker Frequency of alcohol use: None Drug Abuse: None Lives with: Spouse/Significant other Family History: Reviewed & Not Pertinent, CAD, DM Patient has suicidal ideation: No Patient has homicidal ideation: No - Past Medical History Cardiac Medical History: Denies: Hx Coronary Artery Disease, Hx Heart Attack, Hx Hypertension Pulmonary Medical History: Denies: Hx Asthma, Hx Bronchitis, Hx COPD, Hx Pneumonia Neurological Medical History: Reports: Hx Cerebrovascular Accident - At , weakness on left side, cerebral palsy. Denies: Hx Seizures Renal/ Medical History: Denies: Hx Peritoneal Dialysis GI Medical History: Denies: Hx Hepatitis, Hx Hiatal Hernia, Hx Ulcer Musculoskeletal Medical History: Denies Hx Arthritis, Reports Hx Muscle Weakness - Left sided weakness, Reports Hx Musculoskeletal Deformity Infectious Medical History: Denies: Hx Hepatitis Past Surgical History: Reports: Hx Cholecystectomy, Hx Orthopedic Surgery - x6, Hx Tonsillectomy, Hx Tubal Ligation. Denies: Hx Mastectomy, Hx Open Heart Surgery, Hx Pacemaker - Immunizations Immunizations up to date: Yes Hx Diphtheria, Pertussis, Tetanus Vaccination: No Review of Systems - Review of Systems Notes: Constitutional: Negative for fever. HENT: Negative for sore throat. Eyes: Negative for visual changes. Cardiovascular: Negative for chest pain. Respiratory: Negative for shortness of breath. Gastrointestinal: Positive for abdominal pain and diarrhea Genitourinary: Negative for dysuria. Musculoskeletal: Negative for back pain. Skin: Negative for rash. Neurological: Negative for headaches, weakness or numbness. 10 point ROS negative except as marked above and in HPI. Physical Exam - Vital signs Vitals: Temp Pulse Resp BP Pulse Ox 98.3 F 63 18 123/63 95 11/22/18 15:45 11/22/18 15:45 11/22/18 15:45 11/22/18 15:45 11/22/18 15:45 Interpretation: Normal Notes: PHYSICAL EXAMINATION: GENERAL: Well-appearing, well-nourished and in no acute distress. HEAD: Atraumatic, normocephalic. EYES: Pupils equal round and reactive to light, extraocular movements intact, sclera anicteric, conjunctiva are normal. ENT: nares patent, oropharynx clear without exudates. Moist mucous membranes. NECK: Normal range of motion, supple without lymphadenopathy LUNGS: Breath sounds clear to auscultation bilaterally and equal. No wheezes rales or rhonchi. HEART: Regular rate and rhythm without murmurs ABDOMEN: Soft, nontender, normoactive bowel sounds. No guarding, no rebound. No masses appreciated. EXTREMITIES: Normal range of motion, no pitting or edema. No cyanosis. NEUROLOGICAL: No focal neurological deficits. Moves all extremities spontaneously and on command. PSYCH: Normal mood, normal affect. SKIN: Warm, Dry, normal turgor, no rashes or lesions noted. Course - Re-evaluation Re-evalutation: 11/22/18 21:36 Patient presents with 3 days of generalized abdominal pain that is migratory but currently located more towards the right side of her abdomen. Associated with diarrhea but no vomiting. On abdominal exam she has no focal areas of tenderness, rebound or guarding. Abdominal exam is overall very benign. Vitals are within normal limits without tachycardia, fever or hypotension. Labs unremarkable with exception of urinalysis which is grossly contaminated and patient does not have any urinary symptoms to suggest that a urinary source would be the cause of her symptoms today. I have had a risks and benefits conversation with the patient regarding CT imaging of the abdomen and pelvis at this time based on her pain being located more towards the right side of the abdomen. We discussed, based on today's exam and labs there is a possibility that they could have a diagnosis that could be better clarified by CT and that this could possibly electronic data interchange specialist, specifically appendicitis. We discussed the risks of radiation to the abdomen and pelvis. We discussed the alternative of close follow-up with their primary care physician for a recheck of the abdomen within 24 hours as well as reasons to return to the emergency department. After this conversation, the patient has elected to avoid CT imaging of the abdomen and pelvis at this time. They have capacity. They have verbalized the importance of close follow-up as well as reasons to return to the emergency department including worsening abdominal pain, fever, persistent vomiting, or any other symptoms that are worrisome to them. - Vital Signs Vital signs: Temp Pulse Resp BP Pulse Ox 98.1 F 64 18 105/57 L 99 11/22/18 22:18 11/22/18 22:18 11/22/18 22:18 11/22/18 22:18 11/22/18 22:18 - Laboratory Result Diagrams: 11/22/18 16:47 11/22/18 16:47 Laboratory results interpreted by me: 11/22/18 11/22/18 16:47 16:47 Carbon Dioxide 32 H AST 80 H ALT 83 H Urine Protein 30 H Urine Urobilinogen 2.0 H Ur Leukocyte Esterase LARGE H Discharge - Discharge Clinical Impression: Abdominal pain of unknown etiology Diarrhea Qualifiers: Diarrhea type: presumed infectious Qualified Code(s): R19.7 - Diarrhea, unspecified Condition: Good Disposition: HOME, SELF-CARE Additional Instructions: You have been seen in the Emergency Department (ED) for abdominal pain. Your evaluation did not identify a clear cause of your symptoms but was generally reassuring. As we discussed, you need to have a very low threshold to return to the emergency department as we do not have a definitive etiology of your symptoms today. Please follow-up with general physician within the next 24 to 48 hours for reassessment of your abdomen. Return to the ED if your abdominal pain worsens or fails to improve, you develop bloody vomiting, bloody diarrhea, you are unable to tolerate fluids due to vomiting, fever greater than 101, or other symptoms that concern you. Prescriptions: Hyoscyamine Sulfate [Levsin 0.125 Tablet] 0.125 mg PO TID PRN #30 tablet PRN Reason: Referrals: ALPHONSO BECKWITH FNP [Primary Care Provider] - Follow up tomorrow
[2018-11-22 22:24] VITALS: BP 105/57
== END 2018-11-22 22:24 | disposition home or self-care (01) ==
LOC: ER 15:36
DX: R10.84 Generalized abdominal pain (principal); R19.7 Diarrhea, unspecified; R11.0 Nausea; Z90.49 Acquired absence of other specified parts of digestive tract
CPT/HCPCS: 99284; 96361; 96374; 36415; 83690; 84703; 85025; 80053; 81001; J0500; J2405; J7030

== ENCOUNTER 2018-12-16 14:36 | Emergency (ER) | payer BC ==
[2018-12-16] MEDS ORDERED: ACETAMINOPHEN 325 MG TABLET PO ONE (16:35)
[2018-12-16] MEDS ORDERED: NORMAL SALINE 1000 ML 1,000 ML IV ONE (16:36)
--- NOTE | 2018-12-16 16:38 | ER Document Report ---
ED Medical Screen (RME) - General Chief Complaint: Abdominal Pain Stated Complaint: ABDOMINAL PAIN,NAUSEA,LIGHTHEADED Time Seen by Provider: 12/16/18 16:31 Primary Care Provider: ALPHONSO BECKWITH FNP [Primary Care Provider] - Follow up as needed Mode of Arrival: Ambulatory Information source: Patient Notes: 33-year-old female presented to ED for complaint of right upper quadrant/chest pain. She states she has had some nausea but no vomiting. She states she has had her gallbladder out number a years ago. She does have cerebral palsy and has had tendon release multiple. She is also had tonsils and a bilateral tubal ligation. Patient is alert oriented respirations regular and unlabored speaking in full sentences. Patient states she does not drink smoke or do any kind of drugs. I have greeted and performed a rapid initial assessment of this patient. A comprehensive ED assessment and evaluation of the patient, analysis of test results and completion of medical decision making process will be conducted by an additional ED providers. Dictation of this chart was performed using voice recognition software; therefore, there may be some unintended grammatical errors. TRAVEL OUTSIDE OF THE [place] IN LAST 30 DAYS: No COUNTRY TRAVELED TO/FROM: [facility] - Related Data Allergies/Adverse Reactions: fluconazole [From Diflucan] Allergy (Unknown, Verified 12/16/18 14:40) Past Medical History - Social History Frequency of alcohol use: None Drug Abuse: None - Past Medical History Cardiac Medical History: Denies: Hx Coronary Artery Disease, Hx Heart Attack, Hx Hypertension Pulmonary Medical History: Denies: Hx Asthma, Hx Bronchitis, Hx COPD, Hx Pneumonia Neurological Medical History: Reports: Hx Cerebrovascular Accident - At , weakness on left side, cerebral palsy. Denies: Hx Seizures Renal/ Medical History: Denies: Hx Peritoneal Dialysis GI Medical History: Denies: Hx Hepatitis, Hx Hiatal Hernia, Hx Ulcer Musculoskeltal Medical History: Denies Hx Arthritis, Reports Hx Muscle Weakness - Left sided weakness, Reports Hx Musculoskeletal Deformity Infectious Medical History: Denies: Hx Hepatitis Past Surgical History: Reports: Hx Cholecystectomy, Hx Orthopedic Surgery - x6, Hx Tonsillectomy, Hx Tubal Ligation. Denies: Hx Mastectomy, Hx Open Heart Surgery, Hx Pacemaker - Immunizations Immunizations up to date: Yes Hx Diphtheria, Pertussis, Tetanus Vaccination: No History of Influenza Vaccine for 03/2017 - 08/2017 Season: Yes Influenza Administration Date for 03/2017 - 08/2017 Season: 03/04/17 Physical Exam - Vital signs Vitals: Temp Pulse Resp BP Pulse Ox 97.9 F 68 20 120/64 96 12/16/18 15:18 12/16/18 15:18 12/16/18 15:18 12/16/18 15:18 12/16/18 15:18 Course - Vital Signs Vital signs: Temp Pulse Resp BP Pulse Ox 97.9 F 68 20 120/64 96 12/16/18 15:18 12/16/18 15:18 12/16/18 15:18 12/16/18 15:18 12/16/18 15:18 Doctor's Discharge - Discharge Referrals: ALPHONSO BECKWITH FNP [Primary Care Provider] - Follow up as needed
--- NOTE | 2018-12-16 16:58 | RADIOLOGY REPORT (SQ) ---
EXAM DESCRIPTION: CHEST 2 VIEWS COMPLETED DATE/TIME: 12/16/2018 4:46 pm REASON FOR STUDY: chest/right upper quad abdominal pain COMPARISON: 08/02/2018 TECHNIQUE: Frontal and lateral radiographic views of the chest acquired. NUMBER OF VIEWS: Two view. LIMITATIONS: None. FINDINGS: LUNGS AND PLEURA: No pneumothorax. No consolidation or pleural effusion. MEDIASTINUM AND HILAR STRUCTURES: Stable. HEART AND VASCULAR STRUCTURES: Stable. BONES: No acute findings. HARDWARE: None in the chest. OTHER: No other significant finding. IMPRESSION: NO ACUTE FINDINGS. TECHNICAL DOCUMENTATION: JOB ID: [id number] [id number] 2010 [employer]- All Rights Reserved Reading location - IP/workstation name: [email or web address]
[2018-12-16 17:33] LABS: APPEARANCE,URINE SLIGHTLY-CLOUDY; BILIRUBIN,URINE NEGATIVE (NEGATIVE); COLOR,URINE YELLOW; GLUCOSE, URINE NEGATIVE (NEGATIVE); KETONES,URINE NEGATIVE (NEGATIVE); LEUKOCYTE ESTERASE,URINE LARGE (NEGATIVE); NITRITE,URINE NEGATIVE (NEGATIVE); PROTEIN,URINE NEGATIVE (NEGATIVE); URINE SPECIFIC GRAVITY 1.004; UROBILINOGEN,URINE NEGATIVE mg/dL (<2.0)
[2018-12-16 17:44] LABS: ABSOLUTE EOSINOPHILS # (AUTO) 0.1 10^3/uL (0.0-0.6); ABSOLUTE LYMPHOCYTES (AUTO) 2.8 10^3/uL (0.5-4.7); ABSOLUTE MONOCYTES (AUTO) 0.8 10^3/uL (0.1-1.4); ABSOLUTE NEUT (AUTO) 5.5 10^3/uL (1.7-8.2); BASOPHILS % (AUTO) 0.5 % (0-2); EOSINOPHILS % (AUTO) 0.9 % (0-6); HEMATOCRIT 39.7 % (36.0-47.0); HEMOGLOBIN 13.4 g/dL (12.0-15.5); LYMPHOCYTES % (AUTO) 30.2 % (13-45); MEAN CORPUSCULAR HEMOGLOBIN 30.1 pg (27.0-33.4); MEAN CORPUSCULAR HGB CONC 33.7 g/dL (32.0-36.0); MEAN CORPUSCULAR VOLUME 89 fl (80-97); MONOCYTES % (AUTO) 8.8 % (3-13); PLATELET COUNT 285 10^3/uL (150-450); RED BLOOD COUNT 4.44 10^6/uL (3.72-5.28); RED CELL DISTRIBUTION WIDTH 13.4 % (11.5-14.0); SEGMENTED NEUTROPHILS % (AUTO) 59.6 % (42-78); TOTAL CELLS COUNTED % (AUTO) 100 %; WHITE BLOOD COUNT 9.3 10^3/uL (4.0-10.5)
[2018-12-16 18:09] LABS: ALANINE AMINOTRANSFERASE 22 U/L (9-52); ALBUMIN 4.8 g/dL (3.5-5.0); ALKALINE PHOSPHATASE 70 U/L (38-126); ANION GAP 11 (5-19); ASPARTATE AMINO TRANSFERASE 30 U/L (14-36); BILIRUBIN,DIRECT 0.2 mg/dL (0.0-0.4); BILIRUBIN,TOTAL 0.4 mg/dL (0.2-1.3); BLOOD UREA NITROGEN 8 mg/dL (7-20); CALCIUM 9.7 mg/dL (8.4-10.2); CARBON DIOXIDE 29 mmol/L (22-30); CHLORIDE 101 mmol/L (98-107); GLUCOSE 90 mg/dL (75-110); LIPASE 120.9 U/L (23-300); POTASSIUM 4.3 mmol/L (3.6-5.0); SODIUM 140.6 mmol/L (137-145)
[2018-12-16] MEDS ORDERED: ACETAMINOPHEN 325 MG TABLET ONE (20:26)
--- NOTE | 2018-12-16 23:37 | ER Document Report ---
ED General - General Chief Complaint: Abdominal Pain Stated Complaint: ABDOMINAL PAIN,NAUSEA,LIGHTHEADED Time Seen by Provider: 12/16/18 16:31 Primary Care Provider: ALPHONSO BECKWITH FNP [Primary Care Provider] - Follow up as needed Mode of Arrival: Ambulatory TRAVEL OUTSIDE OF THE [place] IN LAST 30 DAYS: No COUNTRY TRAVELED TO/FROM: [facility] Notes: Patient is a 33-year-old female presents emergency department for evaluation of abdominal pain. It is been there intermittently for the last 3 weeks. She states that she cannot seem to find any aggravating factors. She describes it as an aching pain. She rates it a 2-3 out of 10. It is occasionally alleviated by ibuprofen. She states she has had occasional diarrhea. She denies any melena or hematochezia. No fevers or chills. No nausea or vomiting. No urinary symptoms. No vaginal discharge. - Related Data Allergies/Adverse Reactions: fluconazole [From Diflucan] Allergy (Unknown, Verified 12/16/18 14:40) Home Medications: Effexor, unknown medication for "irregular heartbeat" Past Medical History - General Information source: Patient - Social History Smoking Status: Never Smoker Frequency of alcohol use: None Drug Abuse: None Family History: Reviewed & Not Pertinent, CAD, DM Patient has suicidal ideation: No Patient has homicidal ideation: No - Past Medical History Cardiac Medical History: Reports: Other - "Irregular heartbeat" Denies: Hx Coronary Artery Disease, Hx Heart Attack, Hx Hypertension Pulmonary Medical History: Denies: Hx Asthma, Hx Bronchitis, Hx COPD, Hx Pneumonia Neurological Medical History: Denies: Hx Seizures Other: Cerebral palsy Renal/ Medical History: Denies: Hx Peritoneal Dialysis GI Medical History: Denies: Hx Hepatitis, Hx Hiatal Hernia, Hx Ulcer Musculoskeletal Medical History: Denies Hx Arthritis, Reports Hx Muscle Weakness - Left sided weakness, Reports Hx Musculoskeletal Deformity Psychiatric Medical History: Reports: Hx Depression Infectious Medical History: Denies: Hx Hepatitis Past Surgical History: Reports: Hx Cholecystectomy, Hx Orthopedic Surgery - x6, Hx Tonsillectomy, Hx Tubal Ligation. Denies: Hx Mastectomy, Hx Open Heart Elizabeth lexi, Hx Pacemaker - Immunizations Immunizations up to date: Yes Hx Diphtheria, Pertussis, Tetanus Vaccination: No Review of Systems - Review of Systems Constitutional: No symptoms reported EENT: No symptoms reported Cardiovascular: No symptoms reported Respiratory: No symptoms reported Gastrointestinal: See HPI Genitourinary: No symptoms reported Musculoskeletal: No symptoms reported Skin: No symptoms reported Neurological/Psychological: No symptoms reported Physical Exam - Vital signs Vitals: Temp Pulse Resp BP Pulse Ox 97.9 F 68 20 120/64 96 12/16/18 15:18 12/16/18 15:18 12/16/18 15:18 12/16/18 15:18 12/16/18 15:18 - Notes Notes: Vital signs reviewed, please refer to chart. Head is normocephalic, atraumatic. Pupils equal round, reactive to light. Neck is supple without meningismus. Heart is regular rate and rhythm. Lungs are clear to auscultation bilaterally. Abdomen is soft, mildly tender in the right upper quadrant without rebound or guarding, normoactive bowel sounds throughout. Extremities without cyanosis, clubbing. Posterior calves are nontender. Peripheral pulses are equal. Skin is warm and dry. Patient is awake, alert, oriented x3. Course - Re-evaluation Re-evalutation: 12/16/18 23:35 Patient presents emergency department for evaluation. She had initial laboratory investigations as ordered through triage. At the time of my exam she was really essentially pain-free. Her abdominal exam only revealed minimal tenderness. Her laboratory investigations and imaging were unremarkable. At this point I do not have a clear etiology for this patient's pain. It has been going on for several weeks intermittently, so it certainly lowers my suspicion for an acute surgical process. I explained this to the patient. She does have some leukocyte esterase in her urine, but she has no lower abdominal symptoms, no urinary symptoms. She is to follow-up with her primary care physician this week. She is to return to the ED with worsening or new concerning symptoms of any sort. 12/16/18 23:37 - Vital Signs Vital signs: Temp Pulse Resp BP Pulse Ox 97.9 F 70 16 108/42 L 100 12/16/18 19:00 12/16/18 19:00 12/16/18 19:00 12/16/18 19:00 12/16/18 19:00 - Laboratory Result Diagrams: 12/16/18 17:20 12/16/18 17:20 Laboratory results interpreted by me: 12/16/18 17:20 Ur Leukocyte Esterase LARGE H - Diagnostic Test Radiology reviewed: Reports reviewed Radiology results interpreted by me: 12/16/18 23:36 Chest X-Ray 12/16/18 16:34 IMPRESSION: NO ACUTE FINDINGS. Discharge - Discharge Clinical Impression: Right upper quadrant abdominal pain Disposition: HOME, SELF-CARE Instructions: Abdominal Pain ([facility]) Additional Instructions: No clear cause was found for your abdominal pain today. Follow-up with your doctor this week. Return to the emergency department with worsening or new concerning symptoms of any sort. Referrals: ALPHONSO BECKWITH FNP [Primary Care Provider] - Follow up as needed
[2018-12-16 23:47] VITALS: BP 116/60
== END 2018-12-16 23:45 | disposition home or self-care (01) ==
LOC: ER 14:36
DX: R10.11 Right upper quadrant pain (principal); Z90.49 Acquired absence of other specified parts of digestive tract; Z98.51 Tubal ligation status
CPT/HCPCS: 36415; 71046; 80053; 81001; 83690; 84703; 85025; 99284

== ENCOUNTER 2019-05-05 20:48 | Emergency (ER) | payer BC ==
[2019-05-05 22:17] LABS: APPEARANCE,URINE SLIGHTLY-CLOUDY; BILIRUBIN,URINE NEGATIVE (NEGATIVE); COLOR,URINE AMBER; GLUCOSE, URINE NEGATIVE (NEGATIVE); KETONES,URINE NEGATIVE (NEGATIVE); PROTEIN,URINE NEGATIVE (NEGATIVE); URINE SPECIFIC GRAVITY 1.012
[2019-05-05] MEDS ORDERED: CEPHALEXIN 500 MG CAPSULE PO ONE (22:38)
[2019-05-05] MEDS ORDERED: PHENAZOPYRIDINE HCL 100 MG TABLET PO ONE (22:38)
--- NOTE | 2019-05-05 22:39 | ER Document Report ---
HPI - HPI Time Seen by Provider: 05/05/19 22:33 Pain Level: 4 Notes: Otherwise healthy 33-year-old female presenting with right flank pain and dysuria. Patient reports symptoms have been ongoing for 2 days. She denies any nausea, vomiting, diarrhea or fever. She states she believes she has a urinary tract infection. She reports she has been taking Azo without relief. - CONSTITUTIONAL Constitutional: REPORTS: Chills. DENIES: Fever - URINARY Urinary: REPORTS: Dysuria, Urgency, Frequency - REPRODUCTIVE Reproductive: DENIES: : Past Medical History - General Information source: Patient - Social History Smoking Status: Never Smoker Chew tobacco use (# tins/day): No Frequency of alcohol use: None Drug Abuse: None Family History: Reviewed & Not Pertinent, CAD, DM Patient has suicidal ideation: No Patient has homicidal ideation: No - Past Medical History Cardiac Medical History: Denies: Hx Coronary Artery Disease, Hx Heart Attack, Hx Hypertension Pulmonary Medical History: Denies: Hx Asthma, Hx Bronchitis, Hx COPD, Hx Pneumonia Neurological Medical History: Reports: Hx Cerebrovascular Accident - At , weakness on left side, cerebral palsy. Denies: Hx Seizures Renal/ Medical History: Denies: Hx Peritoneal Dialysis GI Medical History: Denies: Hx Hepatitis, Hx Hiatal Hernia, Hx Ulcer Musculoskeletal Medical History: Denies Hx Arthritis, Reports Hx Muscle Weakness - Left sided weakness, Reports Hx Musculoskeletal Deformity Psychiatric Medical History: Reports: Hx Depression - anxiety Infectious Medical History: Denies: Hx Hepatitis Past Surgical History: Reports: Hx Cholecystectomy, Hx Orthopedic Surgery - x6, Hx Tonsillectomy, Hx Tubal Ligation. Denies: Hx Mastectomy, Hx Open Heart Surgery, Hx Pacemaker - Immunizations Immunizations up to date: Yes Hx Diphtheria, Pertussis, Tetanus Vaccination: No Vertical Provider Document - CONSTITUTIONAL Notes: PHYSICAL EXAMINATION: GENERAL: Well-appearing, well-nourished and in no acute distress. HEAD: Atraumatic, normocephalic. EYES: Pupils equal round and reactive to light, extraocular movements intact, conjunctiva are normal. ENT: Nares patent, oropharynx clear without exudates. Moist mucous membranes. NECK: Normal range of motion, supple without lymphadenopathy LUNGS: Breath sounds clear to auscultation bilaterally and equal. No wheezes rales or rhonchi. HEART: Regular rate and rhythm without murmurs ABDOMEN: Soft, nontender, nondistended abdomen. No guarding, no rebound. No masses appreciated. Female : No CVA tenderness Musculoskeletal: Normal range of motion, no pitting or edema. No cyanosis. NEUROLOGICAL: Cranial nerves grossly intact. Normal speech, normal gait. Normal sensory, motor exams PSYCH: Normal mood, normal affect. SKIN: Warm, Dry, normal turgor, no rashes or lesions noted. - INFECTION CONTROL TRAVEL OUTSIDE OF THE [place] IN LAST 30 DAYS: No COUNTRY TRAVELED TO/FROM: [facility] - Re-evaluation Re-evalutation: Laboratory 05/05/19 21:45 Urine Color RADHA Urine Appearance SLIGHTLY-CLOUDY Urine pH 5.0 Ur Specific Odell 1.012 Urine Protein NEGATIVE Urine Glucose (UA) NEGATIVE Urine Ketones NEGATIVE Urine Blood SMALL H Urine Nitrite (Reflex) POSITIVE H Urine Bilirubin NEGATIVE Urine Urobilinogen 2.0 H Leukocyte Esterase Rfl MODERATE H Urine RBC (Auto) 5 Urine Bacteria (Auto) TRACE Urine WBC (Reflex) 45 Squamous Epi Cells Auto 6 Urine Mucus (Auto) RARE Urine Ascorbic Acid NEGATIVE Urine HCG, Qual NEGATIVE Urinalysis shows urinary tract infection. Will start patient on appropriate antibiotics. Patient has no CVA tenderness, no fever and no vomiting. Unlikely pyelonephritis. Patient will follow-up with her primary care physician. Urine culture pending. The patient's emergency department workup and current diagnosis were explained to the patient and or family. Follow-up instructions were provided. Medications if prescribed were discussed. Instructions for when to return to the emergency department including specific worrisome symptoms were discussed with the patient and/or family. - Vital Signs Vital signs: Temp Pulse Resp BP Pulse Ox 98.3 F 60 16 122/67 96 05/05/19 21:37 05/05/19 21:37 05/05/19 21:37 05/05/19 21:37 05/05/19 21:37 - Laboratory Laboratory results interpreted by me: 05/05/19 21:45 Urine Blood SMALL H Urine Nitrite (Reflex) POSITIVE H Urine Urobilinogen 2.0 H Leukocyte Esterase Rfl MODERATE H Discharge - Discharge Clinical Impression: Urinary tract infection Qualifiers: Urinary tract infection type: site unspecified Hematuria presence: without hematuria Qualified Code(s): N39.0 - Urinary tract infection, site not specified Condition: Stable Disposition: HOME, SELF-CARE Additional Instructions: Your urine shows findings consistent with a urinary tract infection. Please take all the antibiotics as directed even if your symptoms have improved. Please follow-up with your primary care physician as needed. Return to emergency room if you develop fever >101F, persistent vomiting, become lethargic, have severe pain in your sides, or any other symptoms that are concerning to you. Prescriptions: Cephalexin [Keflex] 500 mg PO BID #14 capsule Phenazopyridine HCl [Pyridium 100 Mg Tablet] 100 mg PO TID #6 tablet Referrals: ALPHONSO BECKWITH FNP [Primary Care Provider] - Follow up as needed
[2019-05-05 22:58] VITALS: BP 120/64
== END 2019-05-05 22:49 | disposition home or self-care (01) ==
LOC: ER 20:48
DX: N39.0 Urinary tract infection, site not specified (principal); R10.9 Unspecified abdominal pain; R30.0 Dysuria
CPT/HCPCS: 99283; 81025; 81001; J3490

== ENCOUNTER 2019-05-07 15:54 | Emergency (ER) | payer BC ==
--- NOTE | 2019-05-07 18:01 | ER Document Report ---
ED Medical Screen (RME) - General Stated Complaint: BACK PAIN, FEVER, CHILLS,NAUSEA Time Seen by Provider: 05/07/19 17:58 Primary Care Provider: ALPHONSO BECKWITH FNP [Primary Care Provider] - Follow up as needed Mode of Arrival: Ambulatory Information source: Patient Notes: This 33-year-old female presents emergency department with bilateral flank pain. Reports she was treated for UTI several days ago and her symptoms are worse. Reports she was prescribed Keflex. Denies fever vomiting diarrhea. Reports that she has hot flashes and cold chills. I have greeted and performed a rapid initial assessment of this patient. A comprehensive ED assessment and evaluation of the patient, analysis of test results and completion of the medical decision making process will be conducted by additional ED providers. Dictation of this chart was performed using voice recognition software; therefore, there may be some unintended grammatical errors. TRAVEL OUTSIDE OF THE [place] IN LAST 30 DAYS: No COUNTRY TRAVELED TO/FROM: [facility] - Related Data Allergies/Adverse Reactions: fluconazole [From Diflucan] Allergy (Unknown, Verified 12/16/18 14:40) Past Medical History - Past Medical History Cardiac Medical History: Denies: Hx Coronary Artery Disease, Hx Heart Attack, Hx Hypertension Pulmonary Medical History: Denies: Hx Asthma, Hx Bronchitis, Hx COPD, Hx Pneumonia Neurological Medical History: Reports: Hx Cerebrovascular Accident - At , weakness on left side, cerebral palsy. Denies: Hx Seizures Renal/ Medical History: Denies: Hx Peritoneal Dialysis GI Medical History: Denies: Hx Hepatitis, Hx Hiatal Hernia, Hx Ulcer Musculoskeltal Medical History: Denies Hx Arthritis, Reports Hx Muscle Weakness - Left sided weakness, Reports Hx Musculoskeletal Deformity Psychiatric Medical History: Reports: Hx Depression - anxiety Infectious Medical History: Denies: Hx Hepatitis Past Surgical History: Reports: Hx Cholecystectomy, Hx Orthopedic Surgery - x6, Hx Tonsillectomy, Hx Tubal Ligation. Denies: Hx Mastectomy, Hx Open Heart Surgery, Hx Pacemaker - Immunizations Immunizations up to date: Yes Hx Diphtheria, Pertussis, Tetanus Vaccination: No Doctor's Discharge - Discharge Referrals: ALPHONSO BECKWITH FNP [Primary Care Provider] - Follow up as needed
[2019-05-07 18:38] LABS: ABSOLUTE EOSINOPHILS # (AUTO) 0.1 10^3/uL (0.0-0.6); ABSOLUTE LYMPHOCYTES (AUTO) 2.5 10^3/uL (0.5-4.7); ABSOLUTE MONOCYTES (AUTO) 0.7 10^3/uL (0.1-1.4); ABSOLUTE NEUT (AUTO) 5.9 10^3/uL (1.7-8.2); BASOPHILS % (AUTO) 0.5 % (0-2); EOSINOPHILS % (AUTO) 1.2 % (0-6); HEMATOCRIT 38.9 % (36.0-47.0); HEMOGLOBIN 13.2 g/dL (12.0-15.5); LYMPHOCYTES % (AUTO) 27.5 % (13-45); MEAN CORPUSCULAR HEMOGLOBIN 30.3 pg (27.0-33.4); MEAN CORPUSCULAR HGB CONC 33.9 g/dL (32.0-36.0); MEAN CORPUSCULAR VOLUME 89 fl (80-97); MONOCYTES % (AUTO) 7.4 % (3-13); PLATELET COUNT 241 10^3/uL (150-450); RED BLOOD COUNT 4.35 10^6/uL (3.72-5.28); RED CELL DISTRIBUTION WIDTH 13.5 % (11.5-14.0); SEGMENTED NEUTROPHILS % (AUTO) 63.4 % (42-78); TOTAL CELLS COUNTED % (AUTO) 100 %; WHITE BLOOD COUNT 9.3 10^3/uL (4.0-10.5)
[2019-05-07 18:53] LABS: ALBUMIN 4.6 g/dL (3.5-5.0); ALKALINE PHOSPHATASE 53 U/L (38-126); ANION GAP 9 (5-19); ASPARTATE AMINO TRANSFERASE 29 U/L (14-36); BILIRUBIN,TOTAL 0.4 mg/dL (0.2-1.3); BLOOD UREA NITROGEN 9 mg/dL (7-20); CALCIUM 9.7 mg/dL (8.4-10.2); CARBON DIOXIDE 27 mmol/L (22-30); CHLORIDE 102 mmol/L (98-107); GLUCOSE 92 mg/dL (75-110); POTASSIUM 4.1 mmol/L (3.6-5.0); TOTAL PROTEIN 7.8 g/dL (6.3-8.2)
[2019-05-07 21:09] LABS: APPEARANCE,URINE CLEAR; BILIRUBIN,URINE NEGATIVE (NEGATIVE); COLOR,URINE YELLOW; GLUCOSE, URINE NEGATIVE (NEGATIVE); KETONES,URINE NEGATIVE (NEGATIVE); PROTEIN,URINE NEGATIVE (NEGATIVE); URINE SPECIFIC GRAVITY 1.009
[2019-05-08 00:50] LABS: RBCS (WET MOUNT) RARE RBCS SEEN; T.VAGINALIS (WET MOUNT) NO TRICHOMONAS SEEN; WBCS (WET MOUNT) 1+ WBCS SEEN; YEAST (WET MOUNT) NO YEAST SEEN
[2019-05-08] MEDS ORDERED: DOXYCYCLINE HYCLATE 100 MG TABLET PO ONE (01:35)
--- NOTE | 2019-05-08 01:38 | ER Document Report ---
ED GI/ - General Chief Complaint: Flank Pain Stated Complaint: BACK PAIN, FEVER, CHILLS,NAUSEA Time Seen by Provider: 05/07/19 17:58 Primary Care Provider: ALPHONSO BECKWITH FNP [Primary Care Provider] - Follow up as needed Mode of Arrival: Ambulatory Notes: Patient is a 33-year-old female that comes emergency department for chief complaint of painful urination. She states she was seen 2 days ago, diagnosed with a urinary tract infection, placed on Keflex, however she states that today she started having nausea, increased dysuria, and some flank pain. She denies vomiting, fever, vaginal discharge or bleeding, or any other complaints. She has not been sexually active for the past couple months. TRAVEL OUTSIDE OF THE [place] IN LAST 30 DAYS: No COUNTRY TRAVELED TO/FROM: [facility] - Related Data Allergies/Adverse Reactions: fluconazole [From Diflucan] Allergy (Unknown, Verified 12/16/18 14:40) Home Medications: effexor 75mg. acebutolol 200mg Past Medical History - General Information source: Patient - Social History Smoking Status: Never Smoker Chew tobacco use (# tins/day): No Frequency of alcohol use: None Drug Abuse: None Lives with: Family Family History: Reviewed & Not Pertinent, CAD, DM Patient has suicidal ideation: No Patient has homicidal ideation: No - Past Medical History Cardiac Medical History: Denies: Hx Coronary Artery Disease, Hx Heart Attack, Hx Hypertension Pulmonary Medical History: Denies: Hx Asthma, Hx Bronchitis, Hx COPD, Hx Pneumonia Neurological Medical History: Reports: Hx Cerebrovascular Accident - At , weakness on left side, cerebral palsy. Denies: Hx Seizures Renal/ Medical History: Denies: Hx Peritoneal Dialysis GI Medical History: Denies: Hx Hepatitis, Hx Hiatal Hernia, Hx Ulcer Musculoskeletal Medical History: Denies Hx Arthritis, Reports Hx Muscle Weakness - Left sided weakness, Reports Hx Musculoskeletal Deformity Psychiatric Medical History: Reports: Hx Depression - anxiety Infectious Medical History: Denies: Hx Hepatitis Past Surgical History: Reports: Hx Cholecystectomy, Hx Orthopedic Surgery - x6, Hx Tonsillectomy, Hx Tubal Ligation. Denies: Hx Mastectomy, Hx Open Heart Surgery, Hx Pacemaker - Immunizations Immunizations up to date: Yes Hx Diphtheria, Pertussis, Tetanus Vaccination: No Review of Systems - Review of Systems Constitutional: No symptoms reported EENT: No symptoms reported Cardiovascular: No symptoms reported Respiratory: No symptoms reported Gastrointestinal: No symptoms reported Genitourinary: See HPI Female Genitourinary: No symptoms reported Musculoskeletal: No symptoms reported Skin: No symptoms reported Hematologic/Lymphatic: No symptoms reported Neurological/Psychological: No symptoms reported Physical Exam - Vital signs Vitals: Temp Pulse Resp BP Pulse Ox 97.9 F 56 L 18 106/59 L 100 05/07/19 23:03 05/07/19 23:03 05/07/19 23:03 05/07/19 23:03 05/07/19 23:03 - Notes Notes: GENERAL: Alert, interacts well. No acute distress. HEAD: Normocephalic, atraumatic. EYES: Pupils equal, round, and reactive to light. Extraocular movements intact. ENT: Oral mucosa moist, tongue midline. Oropharynx unremarkable. Airway patent. NECK: Full range of motion. Supple. Trachea midline. LUNGS: Clear to auscultation bilaterally, no wheezes, rales, or rhonchi. No respiratory distress. HEART: Regular rate and rhythm. No murmur ABDOMEN: Soft, non-tender. Non-distended. Bowel sounds present in all 4 quadrants. GENITOURINARY: External exam without concerning findings, speculum exam shows mild vaginal discharge but no cervical motion tenderness or concerning findings otherwise. Exam performed with Nellie FOWLER at bedside. EXTREMITIES: Moves all 4 extremities spontaneously. No edema, normal radial and dorsalis pedis pulses bilaterally. No cyanosis. BACK: no cervical, thoracic, lumbar midline tenderness. No saddle anesthesia, normal distal neurovascular exam. Moves all extremities in full range of motion. NEUROLOGICAL: Alert and oriented x3. Normal speech. Cranial nerves II through XII grossly intact. PSYCH: Normal affect, normal mood. SKIN: Warm, dry, normal turgor. No rashes or lesions noted. Course - Re-evaluation Re-evalutation: Patient has a soft benign abdomen on exam, she is alert and well-appearing, unremarkable vital signs. CBC and chemistry reviewed and unremarkable. Urinalysis still shows positive nitrates but patient has been taking Pyridium and I suspect this is a false positive. There are also some white blood cells but this is improved from prior. Because of patient's continued dysuria I recommended a pelvic exam, this showed minimal discharge, no cervical motion tenderness, no concerning findings otherwise. Initial wet mount is very unremarkable. Discussed with patient. Because she is still having symptoms, possibly still has UTI, because no urine culture was placed, we will perform urine culture, change her antibiotic, have her stop the Keflex. Discussed follow-up and return precautions. Patient states understanding and agreement. 05/08/19 07:08 Chlamydia is positive on pending results. I called patient at [phone], I informed patient of her diagnosis, patient will be called in prescription at local pharmacy on request, this was performed. I also discussed with patient that it is important that her other partner be treated as well. Patient states understanding and agreement. - Vital Signs Vital signs: Temp Pulse Resp BP Pulse Ox 98.6 F 62 18 108/53 L 100 05/08/19 01:57 05/08/19 01:57 05/08/19 01:57 05/08/19 01:57 05/08/19 01:57 - Laboratory Result Diagrams: 05/07/19 18:17 05/07/19 18:17 Laboratory results interpreted by me: 05/07/19 05/08/19 18:17 00:39 Urine Nitrite (Reflex) POSITIVE H Urine Urobilinogen 2.0 H Leukocyte Esterase Rfl MODERATE H Chlamydia DNA (PCR) DETECTED H Discharge - Discharge Clinical Impression: Dysuria Condition: Stable Disposition: HOME, SELF-CARE Additional Instructions: We have a urine culture pending in the lab. Take the doxycycline antibiotics as prescribed, take Zofran if needed for nausea/vomiting. Follow up with primary care. Come back if you are worse (fever, vomiting, abdominal pain, etc). Prescriptions: Fluconazole [Diflucan] 150 mg PO ONCE PRN #1 tablet PRN Reason: Doxycycline Hyclate 100 mg PO BID #10 capsule Forms: Return to Work Referrals: ALPHONSO BECKWITH FNP [Primary Care Provider] - Follow up as needed
[2019-05-08 01:58] VITALS: BP 108/53
[2019-05-08 02:26] LABS: CHLAM PCR DETECTED (NOT DETECT)
== END 2019-05-08 01:57 | disposition home or self-care (01) ==
LOC: ER 15:54
DX: N39.0 Urinary tract infection, site not specified (principal); R30.0 Dysuria; R11.0 Nausea; N89.8 Other specified noninflammatory disorders of vagina; R10.9 Unspecified abdominal pain; F32.9 Major depressive disorder, single episode, unspecified; F41.9 Anxiety disorder, unspecified; Z79.899 Other long term (current) drug therapy; Z88.3 Allergy status to other anti-infective agents
CPT/HCPCS: 36415; 80053; 81001; 81025; 85025; 87086; 87210; 87491; 87591; 99283

== ENCOUNTER 2019-09-20 19:39 | Emergency (ER) | payer BC, OTHER ==
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
[2019-09-20] MEDS ORDERED: KETOROLAC TROMETHAMINE 60 MG/2 ML SDV IM ONE (20:26)
--- NOTE | 2019-09-20 20:35 | RADIOLOGY REPORT (SQ) ---
EXAM DESCRIPTION: XR KNEE 4 OR MORE VIEWS COMPLETED DATE/TME: 09/20/2019 19:50 CLINICAL HISTORY: pain COMPARISON: None FINDINGS: Four x-ray views of the right knee were submitted. There is no acute fracture or dislocation. Bone mineralization is within normal limits. There is no radiopaque foreign body material. IMPRESSION: No acute fracture or dislocation.
--- NOTE | 2019-09-20 21:39 | ER Document Report ---
HPI - HPI Time Seen by Provider: 09/20/19 21:26 Pain Level: 5 Context: Patient is a 34-year-old female that comes emergency department for chief complaint of right knee pain. She states this started about a week ago, she states she has been doing squats, patient states she tends to slightly favor the right knee because she has a history of cerebral palsy which affects her left side more. She still able to walk but with pain. She denies any injury other than a long time ago and has had no surgeries to the leg. Patient denies fever/chills, swelling or redness, or any other complaints. Patient denies . - CONSTITUTIONAL Constitutional: DENIES: Fever, Chills - EENT EENT: DENIES: Sore Throat, Ear Pain, Eye problems - NEURO Neurology: DENIES: Headache, Weakness, Vision blurred, Dizzinesss / Vertigo - CARDIOVASCULAR Cardiovascular: DENIES: Chest pain - RESPIRATORY Respiratory: DENIES: Trouble Breathing, Coughing - GASTROINTESTINAL Gastrointestinal: DENIES: Abdominal Pain, Black / Bloody Stools - URINARY Urinary: DENIES: Dysuria, Urgency, Frequency - REPRODUCTIVE Reproductive: DENIES: : - MUSCULOSKELETAL Musculoskeletal: REPORTS: Extremity pain - right knee Past Medical History - General Information source: Patient - Social History Smoking Status: Never Smoker Chew tobacco use (# tins/day): No Frequency of alcohol use: None Drug Abuse: None Lives with: Family Family History: Reviewed & Not Pertinent, CAD, DM Patient has suicidal ideation: No Patient has homicidal ideation: No - Past Medical History Cardiac Medical History: Denies: Hx Coronary Artery Disease, Hx Heart Attack, Hx Hypertension Pulmonary Medical History: Denies: Hx Asthma, Hx Bronchitis, Hx COPD, Hx Pneumonia Neurological Medical History: Reports: Hx Cerebrovascular Accident - At , weakness on left side, cerebral palsy. Denies: Hx Seizures Renal/ Medical History: Denies: Hx Peritoneal Dialysis GI Medical History: Denies: Hx Hepatitis, Hx Hiatal Hernia, Hx Ulcer Musculoskeletal Medical History: Denies Hx Arthritis, Reports Hx Muscle Weakness - Left sided weakness, Reports Hx Musculoskeletal Deformity Psychiatric Medical History: Reports: Hx Depression - anxiety Infectious Medical History: Denies: Hx Hepatitis Past Surgical History: Reports: Hx Cholecystectomy, Hx Orthopedic Surgery - x6, Hx Tonsillectomy, Hx Tubal Ligation. Denies: Hx Mastectomy, Hx Open Heart Surgery, Hx Pacemaker - Immunizations Immunizations up to date: Yes Hx Diphtheria, Pertussis, Tetanus Vaccination: No Vertical Provider Document - CONSTITUTIONAL General Appearance: WD/WN, No Apparent Distress - INFECTION CONTROL TRAVEL OUTSIDE OF THE [place] IN LAST 30 DAYS: No - HEENT HEENT: Atraumatic, Normocephalic - NECK Neck: Normal Inspection - RESPIRATORY Respiratory: Breath Sounds Normal, No Respiratory Distress - CARDIOVASCULAR Cardiovascular: Regular Rate, Regular Rhythm - GI/ABDOMEN Gastrointestinal: Abdomen Soft, Abdomen Non-Tender. negative: Abdomen Tender - BACK Back: Normal Inspection - MUSCULOSKELETAL/EXTREMETIES Musculoskeletal/Extremeties: FRANCISCO, FROM. negative: Tender - No overt tenderness is noted on palpation of the knee, full range of motion of the right knee, no erythema, swelling, abnormal heat. Normal distal leg and neurovascular exam, normal hip exam. Positive Diana's test with some popping. Some pain with ambulation - NEURO Level of Consciousness: Awake, Alert, Appropriate Motor/Sensory: No Motor Deficit, No Sensory Deficit - DERM Integumentary: Warm, Dry, No Rash Course - Re-evaluation Re-evalutation: X-ray of the knee is unremarkable. Patient has no swelling, erythema, abnormal heat, noted tenderness on exam. She does have some discomfort walking and she does have a positive Diana's test with some popping. Based on this and her reported because of injury I suspect meniscal tear. Discussed options with patient, she states she will do well despite immobilization of her right leg, she is provided with knee immobilizer, crutches, discussed care, orthopedic follow-up, and return precautions. Patient states appreciation and agreement. - Vital Signs Vital signs: Temp Pulse Resp BP Pulse Ox 98.8 F 59 L 16 109/55 L 100 09/20/19 19:45 09/20/19 19:45 09/20/19 19:45 09/20/19 19:45 09/20/19 19:45 Procedures - Immobilization Right knee Pre-Proc Neuro Vasc Exam: Normal Immobilizer type: Knee immobilizer Performed by: PCT Post-Proc Neuro Vasc Exam: Normal Alignment checked and good: Yes Discharge - Discharge Clinical Impression: Right knee pain Qualifiers: Chronicity: acute Qualified Code(s): M25.561 - Pain in right knee Condition: Stable Disposition: HOME, SELF-CARE Additional Instructions: Your x-ray is normal. Your exam and injury are very suggestive of a torn meniscus. This can heal with time, I recommend you ice this 3-4 times a day, take the anti-inflammatory as prescribed, elevate whenever possible, wear the knee immobilizer to get around. Symptoms could resolve with time. If symptoms continue follow-up with orthopedics for additional management. Return for any concerning symptoms including severe worsening pain, swelling, numbness, or any other concerning symptoms. Prescriptions: RX: Naproxen 500 mg PO BID PRN #20 tablet PRN Reason: Referrals: ARYA CLEMENTE JR, DO [ACTIVE PROVISIONAL STAFF] - Follow up in 1 week YOANNA ALSTON MD [ACTIVE STAFF] - Follow up in 1 week
[2019-09-20 22:05] VITALS: BP 112/56
== END 2019-09-20 22:35 | disposition home or self-care (01) ==
LOC: ER 19:39
DX: M25.561 Pain in right knee (principal); G80.8 Other cerebral palsy; Z90.49 Acquired absence of other specified parts of digestive tract; Z98.51 Tubal ligation status
CPT/HCPCS: 99283; 96372; 73564; J1885

== ENCOUNTER → 2019-12-03 | Outpatient (CLI) | payer OTHER ==
--- NOTE | 2019-12-03 11:01 | RADIOLOGY REPORT (SQ) ---
EXAM DESCRIPTION: MRI RT LOWER JOINT WITHOUT IMAGES COMPLETED DATE/TIME: 12/03/2019 8:37 am REASON FOR STUDY: UNSPECIFIED INTERNAL DERANGEMENT OF RIGHT KNEE (M23.91) M23.91 UNSPECIFIED HELPDESK ANALYST AL DERANGEMENT OF RIGHT KNEE COMPARISON: Recent radiographs. TECHNIQUE: Rightknee images acquired and stored on PACS. Multiplanar images include fat sensitive s equences as T1, water sensitive sequences as FST2 or STIR, cartilage sensitive sequences as FSPD, and gradient echo sequences. LIMITATIONS: None. FINDINGS: JOINT AND BURSAE: No effusion. BONE CORTEX AND MARROW: No alteration of signal to suggest marrow replacement. No worrisome bone lesi ons. No occult fracture. ACL: Intact. No degeneration or ganglion cyst. PCL: Intact. MCL: Intact. No periligamentous edema or fluid. LCL: Intact. No periligamentous edema or fluid. MEDIAL MENISCUS: No tears. No abnormal signal. LATERAL MENISCUS: No tears. No abnormal signal. MEDIAL COMPARTMENT: Cartilage preserved. No bone bruises or reactive marrow edema. No osteophytes. LATERAL COMPARTMENT: Heterogeneous marrow and the weight-bearing femoral condyle may reflect focal ch ondromalacia without underlying bone cysts or erosions. No other focal defects appreciated. PATELLA: Normal location. Extensive chondromalacia patella with full-thickness loss throughout the l ateral facet. Associated joint space narrowing and subchondral cysts. EXTENSOR MECHANISM: Intact. Quadriceps and patella tendons normal. SOFT TISSUES: Adjacent muscles and subcutaneous tissues normal. Normal flow void in popliteal artery and vein. OTHER: No other significant finding. IMPRESSION: 1. Chondromalacia patella. 2. Lateral femoral condyle chondromalacia. No grade 4 lesions detected here, however. 3. Cruciate and collateral ligaments and menisci are intact. TECHNICAL DOCUMENTATION: JOB ID: [id number] 2010 [employer]- All Rights Reserved Reading location - IP/workstation name: [email or web address]
== END ==
LOC: RAD 07:59
PROVIDERS: ATTEND Physician Assistant
DX: M23.91 Unspecified internal derangement of right knee (principal); M22.41 Chondromalacia patellae, right knee

== ENCOUNTER 2020-04-30 09:20 | Emergency (ER) | payer OTHER ==
--- NOTE | 2020-04-30 13:18 | ER Document Report ---
ED Extremity Problem, Lower - General Chief Complaint: Foot Pain Stated Complaint: LEFT FOOT PAIN Time Seen by Provider: 04/30/20 13:10 Primary Care Provider: CONNOR THAO PA-C [ALLIED HEALTH PROFESSIONAL] - Follow up as needed Mode of Arrival: Wheelchair Information source: Patient Notes: Patient is a 34-year-old female comes emergency room complaining of left foot pain. Patient states it started hurting her about Sunday. Unable to bear weight on it at this time. She denies any known traumatic events. 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 She denies standing on her feet all day. Patient states she has a history of surgery on that foot a few years back she had an ORIF of the ankle. She states that the pain is directly under where the scar is at. Patient denies any other medical problems. Her orthopedic doctor is Connor Thao. She has not contacted them about this yet. Patient does not smoke. TRAVEL OUTSIDE OF THE [place] IN LAST 30 DAYS: No - HPI Patient complains to provider of: Pain Location: Foot Occurred: Last week Where: Home Onset/Duration: Gradual Quality of pain: Achy, Sharp Severity: Moderate Pain Level: 3 Recent injury: No Exacerbated by: Movement, Walking Relieved by: Rest - Related Data Allergies/Adverse Reactions: fluconazole [From Diflucan] Allergy (Unknown, Verified 04/30/20 09:39) Home Medications: effexor Past Medical History - General Information source: Patient - Social History Smoking Status: Never Smoker Chew tobacco use (# tins/day): No Frequency of alcohol use: None Drug Abuse: None Family History: Reviewed & Not Pertinent, CAD, DM Patient has homicidal ideation: No - Past Medical History Cardiac Medical History: Denies: Hx Coronary Artery Disease, Hx Heart Attack, Hx Hypertension Pulmonary Medical History: Denies: Hx Asthma, Hx Bronchitis, Hx COPD, Hx Pneumonia Neurological Medical History: Reports: Hx Cerebrovascular Accident - At , weakness on left side, cerebral palsy. Denies: Hx Seizures Renal/ Medical History: Denies: Hx Peritoneal Dialysis GI Medical History: Denies: Hx Hepatitis, Hx Hiatal Hernia, Hx Ulcer Musculoskeletal Medical History: Denies Hx Arthritis, Reports Hx Muscle Weakness - Left sided weakness, Reports Hx Musculoskeletal Deformity Psychiatric Medical History: Reports: Hx Depression - anxiety Infectious Medical History: Denies: Hx Hepatitis Past Surgical History: Reports: Hx Cholecystectomy, Hx Orthopedic Surgery - x6, Hx Tonsillectomy, Hx Tubal Ligation. Denies: Hx Mastectomy, Hx Open Heart Surgery, Hx Pacemaker - Immunizations Immunizations up to date: Yes Hx Diphtheria, Pertussis, Tetanus Vaccination: No Review of Systems - Review of Systems Constitutional: No symptoms reported EENT: No symptoms reported Cardiovascular: No symptoms reported Respiratory: No symptoms reported Gastrointestinal: No symptoms reported Genitourinary: No symptoms reported Female Genitourinary: No symptoms reported Musculoskeletal: See HPI Skin: No symptoms reported Hematologic/Lymphatic: No symptoms reported Neurological/Psychological: No symptoms reported -: Yes All other systems reviewed and negative Physical Exam - Vital signs Vitals: Temp Pulse Resp BP Pulse Ox 97.6 F 85 16 120/56 L 98 04/30/20 09:34 04/30/20 09:34 04/30/20 09:34 04/30/20 09:34 04/30/20 09:34 Interpretation: Normal - Notes Notes: PHYSICAL EXAMINATION: GENERAL: Patient is well-nourished well-developed 34-year-old female no apparent distress on examination today. HEAD: Atraumatic, normocephalic. LUNGS: Breath sounds clear to auscultation bilaterally and equal. No wheezes rales or rhonchi. HEART: Regular rate and rhythm without murmurs Musculoskeletal: Examination patient's area concern is her left foot. Examination does not show any overt swelling or deformity. Patient has flexion- extension of all her toes on the left foot. She has good dorsalis pedal pulse good cap refill in the nailbeds of the toes of the left foot. No tenderness to palpation on the dorsal aspect of the left foot. Further evaluation of the bottom of the foot shows point tenderness just to the base of the great toe and middle foot. It is proximally over top of the surgical scar. Patient has further evaluation of her ankle shows full range of motion with no discrepancies no deformities and good posterior tibial pulses are normal. NEUROLOGICAL: Normal speech, normal gait. Normal sensory, motor exams PSYCH: Normal mood, normal affect. SKIN: Warm, Dry, normal turgor, no rashes or lesions noted. Course - Re-evaluation Re-evalutation: 04/30/20 14:38 Patient's x-ray came back in 1 it shows moderate pes cavus and postoperative changes at the midfoot without evidence of hardware complication #2 mild hallux valgus deformity and 3 moderate osteopenia and 4 no acute fracture dislocation. At this point given that this pes cavus and the surgical changes are at the midfoot where she hurts a couple of different scenarios play out there is no real medical treatment with medications for the pes cavus however that you can feel some scar tissue on palpation to the area she may have just inflamed scar tissue area. We will place her on his steroid taper and she will call Dr. Connor Thao her orthopedist for follow-up this week. We will place her in a splint and crutches. Currently patient has her own crutches. Since patient is in such discomfort we will probably overdo the splint by putting her in a 90 degree Ortho-Glass posterior as well as a stirrup splint I have informed her she can take this off and if she can get the stirrup splint back on just use the 90 degree with the Mark wrap. - Vital Signs Vital signs: Temp Pulse Resp BP Pulse Ox 97.6 F 85 16 120/56 L 98 04/30/20 09:34 04/30/20 09:34 04/30/20 09:34 04/30/20 09:34 04/30/20 09:34 Procedures - Immobilization Left Foot Time completed: 14:40 Pre-Proc Neuro Vasc Exam: Normal Immobilizer type: Ankle stirrup, Short Leg Posterior Performed by: PCT Post-Proc Neuro Vasc Exam: Normal Alignment checked and good: Yes Discharge - Discharge Clinical Impression: Pes cavus of left foot, Left foot pain Condition: Stable Disposition: HOME, SELF-CARE Additional Instructions: As we discussed your x-ray showed that you have a condition called pes cavus which you will need to follow-up with your orthopedist Dr. Nabila Thao contact his office and follow-up within the first week. In the meantime we will keep you nonweightbearing I will place you in a splint as I indicated to you all probably use more of a splint than actually needed but this will keep you fixated and not have any ideas of stepping down on the foot. So you are nonweightbearing into you see him. You can ice the foot down through the splint by applying a garbage bag over top and ice pack on top of it. You can also take Tylenol for pain and discomfort. I am going to place you on a low-dose steroid taper with the intention that if this is inflammation around the surgical scar area this causing discomfort it will help relieve the discomfort. Should you have any concerns or problems return to ER for reevaluation. Prescriptions: Methylprednisolone [Medrol Dosepack (4 mg/Tab) 21 Tab/Dosepak] 21 tab PO ASDIR #1 dspk Referrals: CONNOR THAO PA-C [ALLIED HEALTH PROFESSIONAL] - Follow up as needed
--- NOTE | 2020-04-30 13:53 | RADIOLOGY REPORT (SQ) ---
EXAM DESCRIPTION: FOOT LEFT COMPLETE IMAGES COMPLETED DATE/TIME: 04/30/2020 12:33 pm REASON FOR STUDY: pain. COMPARISON: None. NUMBER OF VIEWS: Three views. TECHNIQUE: AP, lateral and oblique radiographic images acquired of the left foot. LIMITATIONS: None. FINDINGS: MINERALIZATION: Osteopenia. BONES: Postoperative changes at the cuboid. Postoperative changes at the talocalcaneal joint. No ev idence of hardware fracture, loosening or subsidence. Moderate pes cavus is noted. No acute fractur e or cortical disruption. JOINTS: Mild hallux valgus deformity. No significant periarticular erosions. No effusions. SOFT TISSUES: No soft tissue swelling. No foreign body. OTHER: No other significant finding. IMPRESSION: 1. Moderate pes cavus and postoperative changes at the midfoot without evidence of hardware complicat ion. 2. Mild hallux valgus deformity. 3. Moderate osteopenia. 4. No acute fracture or dislocation. TECHNICAL DOCUMENTATION: JOB ID: [id number] 2010 [email or web address]- All Rights Reserved Reading location - IP/workstation name: [email or web address]
[2020-04-30 15:43] VITALS: BP 133/76
== END 2020-04-30 15:44 | disposition home or self-care (01) ==
LOC: ER 09:20
DX: Q66.72 Congenital pes cavus, left foot (principal); M79.672 Pain in left foot; F32.9 Major depressive disorder, single episode, unspecified; F41.9 Anxiety disorder, unspecified; Z79.899 Other long term (current) drug therapy; M85.872 Other specified disorders of bone density and structure, left ankle and foot; Z98.890 Other specified postprocedural states; Z88.3 Allergy status to other anti-infective agents
CPT/HCPCS: 99283